=== PATIENT | female | born 1940 | race Caucasian/White ===

== ENCOUNTER 2019-09-02 09:34 | Inpatient (IN) ==
[2019-09-02 11:06] LABS: BASO# 0.03 X1000 (0.0-0.2); BASO% 0.3 % (0.0-0.8); EOS# 0.13 X1000 (0.0-0.7); EOS% 1.4 % (0.0-10.0); HEMATOCRIT 39.6 % (37.0-47.0); HEMOGLOBIN 12.1 g/dL (12.0-16.0); IMM GRAN# 0.02 X1000 (0.0-0.04); IMM GRAN% 0.2 % (0.0-0.5); LYMPH# 0.73 X1000 (1.2-3.4); LYMPH% 7.9 % (20.5-51.1); MCH 25.4 PG (27-31); MCHC 30.6 g/dL (33-37); MONO% 2.2 % (1.7-9.3); MPV 10.8 FL (7.4-10.4); NEUT# 8.16 X1000 (1.4-6.5); PLT 487 X1000 (130-400); RBC 4.77 XMIL (4.2-5.4); RDW 17.6 % (11.5-14.5); WBC 9.27 X1000 (4.8-10.8)
[2019-09-02 11:21] LABS: AGAP 13; ALB/GLOB RATIO 1.3; ALBUMIN 3.2 g/dL (3.5-5.0); ALKALINE PHOSPHATASE 133 U/L (32-104); AMYLASE 56 U/L (20-200); BUN 10 mg/dL (8-22); CALCIUM 9.1 mg/dL (8.8-10.2); CHLORIDE 102 mmol/L (98-107); CK PROFILE 23 U/L (24-173); COSMO 285; CREATININE 0.8 mg/dL (0.5-0.9); ESTIMATED GFR > 60; GLUCOSE 112 mg/dL (70-104); GOT 10 U/L (10-30); GPT 5 U/L (10-36); LIPASE 11 U/L (13-60); POTASSIUM 3.5 mmol/L (3.5-5.1); SODIUM 143 mmol/L (136-145); TCO2 28 mmol/L (25-35); TOTAL PROTEIN 5.6 g/dL (6.3-8.3)
--- NOTE | 2019-09-02 11:30 | Diag Imaging Result Doc PS360 ---
CHEST-1 VIEW - 09/02/2019 INDICATION: wheezing COMPARISON: 11/24/2017 FINDINGS: Lungs are somewhat hyperexpanded suggesting COPD. The lungs are clear. Heart size is normal. No pneumothorax or pleural effusion. IMPRESSION: Possible COPD but no acute disease. Electronically signed by Nate Pereyra 09/02/2019 11:27 AM
--- NOTE | 2019-09-02 12:35 | Diag Imaging Result Doc PS360 ---
CT HEAD/C-SPINE W/O CONTRAST - 09/02/2019 INDICATION: syncope COMPARISON: 11/24/2017 FINDINGS: Head CT: The ventricles and sulci are normal in size and contour. No intracranial mass or hemorrhage. The skull is intact. The sinuses, mastoids, and middle ears are clear. Cervical spine: There is exaggeration of the normal cervical lordosis. No fracture or subluxation. 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 There is advanced degeneration at C3-4 and C4-5. Other disc spaces are well preserved. No central canal stenosis. IMPRESSION: No acute disease. This exam was performed using automated exposure control, adjustment of mA or kV according to patient size, and/or use of iterative reconstruction technique Electronically signed by Nate Pereyra 09/02/2019 12:33 PM
[2019-09-02] MEDS ORDERED: NS 1,000 ML IV ONE (12:42)
--- NOTE | 2019-09-02 12:49 | PROVIDER DOCUMENTATION ---
This chart was entered by Steph Chowdhury Scribe, acting as scribe for Alee Falk MD. HPI-Syncope/Dizziness - General Chief Complaint: Syncope Stated Complaint: ABD PAIN Time Seen by Provider: 09/02/19 10:00 Source: patient Allergies/Adverse Reactions: Patient Allergies Allergy/AdvReac Type Severity Reaction Status Date / Time cefuroxime [From Ceftin] Allergy Unknown Verified 09/02/19 10:07 Home Medications: Home Medication List Medication Instructions Recorded Confirmed Last Taken Type Albuterol Sulfate 2.5 mg NEB PRN PRN 12/20/16 09/02/19 09/01/19 History 2.5 MG Budesonide/Formoterol Fumarate 2 puff IH BID 12/20/16 09/02/19 09/02/19 History [Symbicort 160-4.5 Mcg Inhaler] 2 PUFF Cholecalciferol (Vitamin D3) 1,000 units PO DIRECTED 12/20/16 09/02/19 09/01/19 History [D3-2000] Lisinopril 20 mg PO BID 12/20/16 09/02/19 09/02/19 History 20 MG Pravastatin Sodium [Pravachol] 80 mg PO HS 12/20/16 09/02/19 09/01/19 History 80 MG Umeclidinium [place] [Incruse 62.5 mcg IH DAILY 12/20/16 09/02/19 09/02/19 History Ellipta] 62.5 MCG Aspirin [Aspir-Low] 81 mg PO DAILY 09/02/19 09/02/19 09/01/19 History 81 MG Cyanocobalamin (Vitamin B-12) 1,000 mcg IJ Q30D 09/02/19 09/02/19 Unknown History [Cyanocobalamin Injection] Donepezil [Aricept] 10 mg PO QHS 09/02/19 09/02/19 09/01/19 History 10 MG Ferrous Sulfate 325 mg PO DAILY 09/02/19 09/02/19 09/02/19 History 325 MG Quetiapine [Seroquel] 25 mg PO HS 09/02/19 09/02/19 09/01/19 History 25 MG Roflumilast [Daliresp] 500 mcg PO DAILY 09/02/19 09/02/19 09/01/19 History 500mcg - History of Present Illness-Syncope/Dizzy Nature of Presenting Problem: 78yof presents to ED by EMS cc 2x syncopal episodes this morning, hit right side of face on an unknown object and then vomited right after coming to. Pt does reports LOC. EMS witnessed the 2nd episode. Pt has recently finished ABT for UTI. Pt has hx of HTN and COPD. Pt is A&Ox3 upon exam. Onset/Duration: reports: this morning Position/Activity at time of episode: reports: standing Symptoms prior to episode: reports: none Context: reports: lost consciousness Loss of Consciousness: unsure Current Symptoms: reports: abdominal pain (lower) Recently Seen Here or By Another Healthcare Provider: No Review of Systems - Adult - REVIEW OF SYSTEMS - ADULT Constitutional: reports: see HPI. denies: chills, fever, fatique Eyes: reports: no symptoms reported Ears, Nose, Mouth & Throat: reports: no symptoms reported Cardiovascular: reports: no symptoms reported Respiratory: reports: no symptoms reported Gastrointestinal: reports: see HPI, abdominal pain (lower). denies: constipation, diarrhea, nausea Genitourinary: reports: no symptoms reported Musculoskeletal: reports: see HPI, other (pain to right side face) Integumentary: reports: no symptoms reported Neurological: reports: see HPI, syncope Psychiatric: reports: no symptoms reported Endocrine: reports: no symptoms reported Hematologic/Lymphatic: reports: no symptoms reported Allergic/Immunologic: reports: no symptoms reported All Other Systems: Reviewed and Negative Past History - Adult - PAST MEDICAL HISTORY-ADULT Review of Records: reports: Nursing Assessment Review, Medications Reviewed, Social history reviewed & non-contributory. Major Childhood Illnesses: reports: denies history Cardiovascular: reports: HTN Respiratory: reports: COPD Gastrointestinal: reports: denies history Obstetrical/Gynecological: reports: denies history Genitourinary: reports: denies history Musculoskeletal: reports: denies history Neurological: reports: denies history Endocrine/Immune: reports: denies history Other Conditions: reports: denies history - IMMUNIZATION STATUS Childhood Immunizations: See Nurse Assessment Flu Vaccine: See Nurse Assessment - FAMILY HISTORY Family History: reviewed, not pertinent - SOCIAL HISTORY Smoking: denies Physical Exam-General - PHYSICAL EXAM-ADULT Initial Vital Signs Reviewed: Yes - CONSTITUTIONAL General Appearance: appears well, alert. negative: anxious, combative - EYES Eyes: PERRL/EOMI, pink conjunctivae. negative: photophobia - HEAD, EARS, NOSE, MOUTH & THROAT HENMT: normocephalic/atraumatic, moist mucous membranes, normal ENT inspection. negative: angioedema - RESPIRATORY Respiratory: chest non-tender, lungs clear, normal breath sounds. negative: rhonchi, stridor - CARDIOVASCULAR Cardiovascular: normal peripheral pulses, regular rate, rhythm, no edema. negative: bradycardia, tachycardia - GASTROINTESTINAL (ABDOMEN) Abdominal Exam: normal bowel sounds, soft, tenderness (lower abdomen). negative: distended, guarding - MUSCULOSKELETAL Extremity: normal inspection. negative: deformity - SKIN Integumentary: other (bruising to right parietal region). negative: abrasion(s), diaphoresis, jaundice - PSYCHIATRIC Psych/Mental Status: normal mood/affect, oriented x 3. negative: anxious, d isheveled Progress - PLAN OF CARE/RESULTS Progress/Plan/Lab Results: Vital Signs - 8 hr 09/02/19 09:48 09/02/19 09:50 09/02/19 10:02 Temperature 97.9 F Pulse Rate 78 74 67 Respiratory Rate 18 12 19 Blood Pressure 92/52 92/52 83/43 O2 Sat by Pulse Oximetry 98 100 100 09/02/19 10:33 09/02/19 11:02 09/02/19 12:40 Temperature Pulse Rate 81 78 62 Respiratory Rate 23 16 9 L Blood Pressure 94/65 97/58 100/59 O2 Sat by Pulse Oximetry 98 100 98 09/02/19 13:02 Temperature Pulse Rate 65 Respiratory Rate 12 Blood Pressure 112/51 O2 Sat by Pulse Oximetry 99 Laboratory Results - last 24 hr 09/02/19 09/02/19 09/02/19 09:58 10:40 10:40 WBC 9.27 RBC 4.77 Hgb 12.1 Hct 39.6 MCV 83.0 MCH 25.4 L MCHC 30.6 L RDW Std Deviation 17.6 H Plt Count 487 H MPV 10.8 H Immature Gran % (Auto) 0.2 Neut % (Auto) 88.0 H Lymph % (Auto) 7.9 L Rowan % (Auto) 2.2 Eos % (Auto) 1.4 Baso % (Auto) 0.3 Immature Gran # (Auto) 0.02 Neut # (Auto) 8.16 H Lymph # (Auto) 0.73 L Rowan # (Auto) 0.20 Eos # (Auto) 0.13 Baso # (Auto) 0.03 Sodium 143 Potassium 3.5 Chloride 102 Carbon Dioxide 28 Anion Gap 13 BUN 10 Creatinine 0.8 Estimated GFR/1.73 m2 > 60 BUN/Creatinine Ratio 13 Glucose 112 H POC Glucose 96 Calculated Osmolality 285 Calcium 9.1 Total Bilirubin 0.90 AST 10 ALT 5 L Alkaline Phosphatase 133 H Creatine Kinase 23 L Troponin T Total Protein 5.6 L Albumin 3.2 L Globulin 2.4 Albumin/Globulin Ratio 1.3 Amylase 56 Lipase 11 L 09/02/19 10:40 WBC RBC Hgb Hct MCV MCH MCHC RDW Std Deviation Plt Count MPV Immature Gran % (Auto) Neut % (Auto) Lymph % (Auto) Rowan % (Auto) Eos % (Auto) Baso % (Auto) Immature Gran # (Auto) Neut # (Auto) Lymph # (Auto) Rowan # (Auto) Eos # (Auto) Baso # (Auto) Sodium Potassium Chloride Carbon Dioxide Anion Gap BUN Creatinine Estimated GFR/1.73 m2 BUN/Creatinine Ratio Glucose POC Glucose Calculated Osmolality Calcium Total Bilirubin AST ALT Alkaline Phosphatase Creatine Kinase Troponin T < 0.010 Total Protein Albumin Globulin Albumin/Globulin Ratio Amylase Lipase Orders Category Date Time Status Check glucose DIRECTED Care 09/02/19 09:51 Active ED: Orthostatic Vital Signs (E DIRECTED Care 09/02/19 12:44 Active [place] [place] DIRECTED Care 09/02/19 10:40 Active Orthostatic Vital Signs Q12-HR ASSESS Care 09/02/19 20:00 Active Saline Loc DIRECTED Care 09/02/19 09:44 Active NPO Diet 09/02/19 09:[address] ABD/PELVIS W/IV CONT ONLY [CT] Stat Exams 09/02/19 09:[address] HEAD/C-SPINE W/O CONTRAST [CT] Stat Exams 09/02/19 09:48 Completed cxr [CHEST-1 VIEW] [RAD] Stat Exams 09/02/19 09:47 Completed AMYLASE [CHEM] Stat Lab 09/02/19 10:40 Completed CBC WITH ELECTRONIC DIFF [HEME] Stat Lab 09/02/19 10:40 Completed CK PROFILE [SP CHEM] Stat Lab 09/02/19 10:40 Completed COMPREHENSIVE METABOLIC PANEL [CHEM] Stat Lab 09/02/19 10:40 Completed LIPASE [CHEM] Stat Lab 09/02/19 10:40 Completed TROPONIN T Stat Lab 09/02/19 10:40 Completed URINALYSIS W/POSS RFLX CULT [URINALYSIS] Stat Lab 09/02/19 09:44 Uncollected 0.9% Sodium Chloride Inj [Ns] 1,000 ml Med 09/02/19 12:42 Active IV 999 mls/hr Levaquin 750 mg/D5w IV Now Med 09/02/19 13:18 Ordered Levofloxacin 750 mg/D5w [Levaquin 750 mg/D5w] 750 mg in 150 ml IV NOW EKG [EKG] Stat Ther 09/02/19 09:44 Ordered Result Diagrams: 09/02/19 10:40 09/02/19 10:40 - REASSESSMENT Reassessment #1 Time Reassessed: 12:44 Status: other (awake, reorts no complaint. I discussed labs with pt and family and the need to admit at for 23hrs for syncope evaluation. Hospitalist also notified) - EKG 1 Time of EKG reading by physician:: 10:00 EKG Read and Signed by:: Akbar Cabrera EKG Interpretation (*Must complete 3 of following elements*): Abnormal Rate: 82 Rhythm: NSR QRS: normal ST Wave: non-specific ST changes - XRAY 1 XRAY: Bilateral XRAY Study: Chest ( CHEST-1 VIEW - 09/02/2019 INDICATION: wheezing COMPARISON: 11/24/2017 FINDINGS: Lungs are somewhat hyperexpanded suggesting COPD. The lungs are clear. Heart size is normal. No pneumothorax or pleural effusion. IMPRESSION: Possible COPD but no acute disease. Electronically signed by Nate Pereyra 09/02/2019 11:27 AM) Impression: See EMR Report (IMPRESSION: Possible COPD but no acute disease. Electronically signed by Nate Pereyra 09/02/2019 11:27 AM) - CT/MRI 1 CT Study: Cervical Spine, Head Impression: See EMR Report (IMPRESSION: No acute disease. This exam was performed using automated exposure control, adjustment of mA or kV according to patient size, and/or use of iterative reconstruction technique Electronically signed by Nate Pereyra 09/02/2019 12:33 PM) 2 CT Study: Abdomen Impression: See EMR Report (IMPRESSION: 1. Severe COPD. Severe chronic bronchitis. Significant chronic atypical pneumonia in the lung bases consistent with aspiration or atypical mycobacteria. 2. Severe enteritis. No bowel obstruction or perforation. Trace ascites. 3. Stable benign-appearing left adrenal nodule. 4. Hiatal hernia. This exam was performed using automated exposure control, adjustment of mA or kV according to patient size, and/or use of iterative reconstruction technique Electronically signed by Nate Pereyra 09/02/2019 12:51 PM) - CONSULTS/PCP/HOSPITALIST Notification #1 *Consult/PCP/Hospitalist*: CUONG Johnston Time Discussed: 12:46 Consult Disposition: Admit (admits for hospitalist) Departure - Departure Date of Disposition Decision: 09/02/19 Time of Disposition Decision: 12:47 DIAGNOSIS: Syncope Qualifiers: Syncope type: unspecified Qualified Code(s): R55 - Syncope and collapse Hypotension Qualifiers: Hypotension type: unspecified hypotension type Qualified Code(s): I95.9 - Hypotension, unspecified Pneumonia Qualifiers: Pneumonia type: due to unspecified organism Laterality: bilateral Lung location: lower lobe of lung Qualified Code(s): J18.1 - Lobar pneumonia, unspecified organism COPD (chronic obstructive pulmonary disease) Qualifiers: COPD type: unspecified COPD Qualified Code(s): J44.9 - Chronic obstructive pulmonary disease, unspecified Disposition: ADMITTED INPATIENT 09 Certified Medical Emergency: Emergent Condition: Fair Referrals and Follow-Ups: Arin Sutherland [Primary Care Provider] - - Critical Care Note This patient required my direct & personal management of CC.: No Attestation - Physician/ CATALINA Attestation Patient care was provided by Advanced Practice Provider:: No The physician spent face to face time with patient:: Yes Advanced Practice Provider documentation review:: Supervising physician onsite and consulted in the evaluation and care of this patient. The physician did have a face to face encounter with the patient. This chart was documented by the indicated scribe, (Steph Chowdhury Scribe) and accurately reflects the services I performed and decisions made by me, Alee Falk MD, as attested by the provider's signature.
--- NOTE | 2019-09-02 12:53 | Diag Imaging Result Doc PS360 ---
CT ABD/PELVIS W/IV CONT ONLY - 09/02/2019 INDICATION: abdominal pain and syncope COMPARISON: 11/24/2017 FINDINGS: There is advanced COPD in the lung bases. There is chronic bronchitis in the lung bases. There is also significant reticulonodular infiltrates bilaterally left greater than right. 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 Stable hiatal hernia. Stable heterogeneously enhancing left adrenal nodule. Stable mild fatty change of the liver. There is some trace ascites. There is long segment inflammation of the mid and distal small bowel with wall thickening and hyperemia. The pancreas, spleen, kidneys, and gallbladder are normal. No free air. No constipation. Urinary bladder and rectum are normal. There are moderate degenerative changes of the spine. No acute or suspicious bony lesion. IMPRESSION: 1. Severe COPD. Severe chronic bronchitis. Significant chronic atypical pneumonia in the lung bases consistent with aspiration or atypical mycobacteria. 2. Severe enteritis. No bowel obstruction or perforation. Trace ascites. 3. Stable benign-appearing left adrenal nodule. 4. Hiatal hernia. This exam was performed using automated exposure control, adjustment of mA or kV according to patient size, and/or use of iterative reconstruction technique Electronically signed by Nate Pereyra 09/02/2019 12:51 PM
[2019-09-02] MEDS ORDERED: LEVAQUIN 750 MG/D5W 750 MG/150 ML IVPB IV ONE (13:18)
[2019-09-02] MEDS ORDERED: ZOFRAN IV PRN (13:50)
[2019-09-02] MEDS ORDERED: TYLENOL PO PRN ×2 (13:50)
[2019-09-02 16:06] LABS: URINE SOURCE CATH
[2019-09-02] MEDS: XOPENEX NEB INH SCH ×3 (16:06→23:42)
[2019-09-02] MEDS: ATROVENT NEB INH SCH ×3 (16:06→23:42)
[2019-09-02 16:10] LABS: BILIRUBIN URINE NEGATIVE (NEGATIVE); BLOOD URINE NEGATIVE (NEGATIVE); COLOR YELLOW; GLUCOSE URINE NEGATIVE (NEGATIVE); KETONE URINE TRACE mg/dL (NEGATIVE); LEUKOCYTES URINE NEGATIVE (NEGATIVE); NITRITE URINE NEGATIVE (NEGATIVE); PROTEIN URINE 50 mg/dL (NEGATIVE); TURBIDITY URINE CLEAR (CLEAR); UROBILINOGEN URINE NORMAL (NORMAL)
[2019-09-02 16:12] LABS: UR EPITHELIAL CELLS <10 /HPF (<10); URINE BACTERIA NEGATIVE /HPF; URINE RBC <10 /HPF (<10); URINE WBC <10 /HPF (<10)
[2019-09-02] MEDS: FLAGYL 500 MG/NS 500 MG/100 ML IVPB IV SCH ×2 (16:13→20:51)
[2019-09-02] MEDS: NS 1,000 ML IV SCH (16:14)
[2019-09-02] MEDS: PROTONIX IV SCH (16:14)
--- NOTE | 2019-09-02 16:33 | HISTORY AND PHYSICAL ---
PRIMARY CARE PROVIDER: Arin Sutherland. CHIEF COMPLAINT: Passed out. HISTORY OF PRESENT ILLNESS: Ms. Louie Dowling is a 78-year-old female with a medical history of COPD on 2 L home oxygen, dementia, iron deficiency anemia, hypertension, hyperlipidemia, sleep apnea with CPAP, and chronic diarrhea. She comes in after having 2 syncopal spells at home. The patient does not really remember much about it other than the first time she tried to get up to go to the bathroom and that is all she remembers. She did hit her head, but imaging is negative for any acute findings. On further questioning the family member at the bedside, she has been having diarrhea that is black in color. However, she is on iron supplementation. Her appetite has been poor. She has had at least a 10 pound weight loss over the last 4 to 5 months. There is denial that she has any issues with swallowing. However, an abdominal pelvic CT was obtained because she did have some vomiting up clear color earlier and it shows a pretty significant case of severe enteritis and it also shows bilateral bases pneumonia that seems to be consistent with aspiration type pneumonia. She did not have any injuries from these syncopal spells. It is also noted that she has been having a lot of diarrhea, more than her usual, and she had 2 weeks recently of antibiotics to cover for a urinary tract infection, which she did complete her antibiotics. PAST MEDICAL HISTORY: 1. Chronic obstructive pulmonary disease on home O2 2 L. 2. Obstructive sleep apnea, wears CPAP at night. 3. Dementia. 4. Iron deficiency anemia. 5. Hypertension. 6. Hyperlipidemia. 7. Diarrhea that is chronic. SURGICAL HISTORY: None. SOCIAL HISTORY: Started smoking at the age of 16, was a 1 to 2 pack per day smoker, but quit several years ago, exact time frame is unknown when she actually quit. No other alcohol or illicit drug use. She lives with her brother and [id number], who is actually the person at the bedside, is her [id number]. No devices for ambulation. FAMILY HISTORY: Mother had breast cancer. Father of myocardial infarction. ALLERGIES: Cefuroxime. HOME MEDICATIONS: 1. Aricept 10 mg p.o. nightly. 2. Albuterol nebulizers as needed. 3. Aspirin 81 mg p.o. daily. 4. Vitamin B12 injections every 30 days. 5. Vitamin D3 1000 units p.o. as directed. 6. Daliresp 500 mcg p.o. daily. 7. Ferrous sulfate 325 mg p.o. daily. 8. Incruse Ellipta 62.5 mcg inhaled daily. 9. Lisinopril 20 mg p.o. twice daily. 10. Pravachol 80 mg p.o. nightly. 11. Seroquel 25 mg p.o. nightly, may take 1 to 2 pills by mouth at bedtime for anxiety and sleep. 12. Symbicort 160/4.5 mcg 2 puffs inhaled twice daily. REVIEW OF SYSTEMS: Difficult to obtain given her dementia, but she did have some complaints of abdominal discomfort but denies everything else. PHYSICAL EXAMINATION: VITAL SIGNS: Temperature 97.9 degrees, heart rate 65, respiratory rate 12, blood pressure 112/51, O2 saturation 99% on room air. GENERAL: Ms. Louie Dowling is a 78-year-old female. She is in no acute distress. She is able answer some questions appropriately. HEENT: Atraumatic, normocephalic. Pupils equal, round, reactive to light. Extraocular movements intact. Mucous membranes are dry. She does have some bruising on her right cheek that is old in nature. NECK: Trachea midline. CARDIOVASCULAR: S1, S2. Regular rate and rhythm. No rubs, gallops, murmurs. No lower extremity edema. +2 dorsalis and radial pulses. Negative JVD or carotid bruits. PULMONARY: Mild expiratory wheezes noted with some prolonged expiration. Tolerating room air. No accessory muscle use or work of breathing noted. GI: Soft, tender in the lower abdomen. Hypoactive bowel sounds x4. EXTREMITIES: Moves all extremities with decreased range of motion. NEUROLOGIC: Oriented to name and place. Answered some questions appropriately. SKIN: Warm, dry, intact except for some bruising on her face and I believe an IV infiltrated in her left arm. LABORATORY DATA: White blood cells 9000, hemoglobin 12, hematocrit 39, platelet count 487,000. Sodium 143, potassium 3.5, BUN 10, creatinine 0.8, glucose 112, calcium 9.1, bilirubin 0.90, AST 10, ALT 5. CK 23, troponin less than 0.01. Albumin 3.2, amylase 56, lipase 11. Urinalysis pending. ASSESSMENT/PLAN: 1. Syncope, most likely orthostatic hypotension as she had blood pressures in the 90s. Family states that she does not take in a whole lot of fluids, so she is most likely hypotensive secondary to dehydration as well, so we will do orthostatics and give her some IV fluids. We will also check an echocardiogram and a carotid ultrasound. 2. Abdominal discomfort with vomiting. Abdominal CT was obtained and showed that she has severe enteritis. She will be on Levaquin and Flagyl. We will get a Clostridium difficile colitis rule out sample. 3. Hiatal hernia with gastroesophageal reflux disease. We will do some intravenous Protonix. 4. Bilateral bibasilar pneumonia, possible from aspiration or community-acquired. She is currently on Levaquin. We can change that if we need to. We will get a sputum for culture and sensitivity. Nebulizers. 5. Chronic obstructive pulmonary disease, again we will continue with her nebulizers and incentive spirometer with oxygen as needed. 6. Dementia. Continue home medications. 7. History of hypertension but we are going to hold off on her antihypertensives. 8. Iron deficiency anemia. Continue with iron supplementation. 9. Obstructive sleep apnea. Continue her CPAP. 10. Deep venous thrombosis prophylaxis with SCDs. Dictated by MONIK Myers for Carlos Durant MD cc: MONIK Myers MD
[2019-09-02] MEDS ORDERED: ATIVAN PO ONE (17:29)
--- NOTE | 2019-09-02 17:34 | HISTORY AND PHYSICAL ---
HISTORY OF PRESENT ILLNESS: I have seen and examined Ms. Dowling today. The daughter, son and [id number] were at the bedside at the time of the encounter. The son tells the story that early this morning Ms. Dowling woke up and tried to get out of the bed and apparently passed out at the bedside. He went to check on her after he heard the sound. When he arrived, Ms. Dowling was on the floor unresponsive. He used a wet towel on her face and she became slightly responsive. He started to lift her up and then she went back unresponsive again so he put her on the on the floor again and a couple seconds after she started talking back and getting clear. By the time the ambulance came to pick her, which according to them was about 10 to 15 minutes, Ms. Dowling was up, was talking, and very clear mentating. According to the [id number] this is about the 2nd time this has happened, but this has been the worst. Upon presentation, she was found to have a systolic blood pressure of 92/52. Her orthostatic vitals were slightly positive as well. On clinical exam, her mucous membrane looks dry but anicteric. There is a mild bruise over the right cheek. Otherwise, her mentation and her neurological exam for most part is unremarkable. LABORATORY DATA: There is a mild normocytic anemia. Platelet count of 487,000. Chemistry is also reviewed. Unremarkable. IMAGING STUDIES: Have all been reviewed, including a CT scan of the abdomen and pelvis which shows severe COPD with chronic bronchitis, severe enteritis, benign appearing left adrenal nodule, there is a hiatal hernia. A CT scan of the head and cervical spine shows no acute disease. HOME MEDICATIONS: Have also been reviewed. Of note, she is on lisinopril for blood pressure. ASSESSMENT: 1. Syncopal episode at home, most likely due to orthostatic hypotension. 2. Clinical volume depletion. 3. History of hypertension. Patient is on lisinopril. Of note, on presentation, she was borderline hypotensive, so this will be withheld for now. 4. Borderline normocytic anemia. We will check her iron studies. 5. History of severe chronic obstructive pulmonary disease. We will continue with her home medications. The patient has been started on antibiotics for possible aspiration pneumonitis versus atypical pneumonia on the lung bases. 6. Severe enteritis. Ms. Dowling refers to be having a little bit of bowel movement and we will sample this for culture, Clostridium difficile, and stool WBC and treat it accordingly, if there is any infectious pathogen. Please refer to the details of the history and physical which has been dictated by the [employer] in the chart. cc: Carlos Durant MD
--- NOTE | 2019-09-02 17:38 | EKG Report ---
Test Performed on : 09/02/2019 09:58:35 AM Test Reason : syncope Blood Pressure : / mmHG Vent. Rate : 082 BPM Atrial Rate : 082 BPM P-R Int : 146 ms QRS Dur : 078 ms QT Int : 396 ms P-R-T Axes : 081 058 039 degrees QTc Int : 462 ms Normal sinus rhythm. Nonspecific ST and T wave abnormality Abnormal ECG No previous ECGs available Unconfirmed Result
[2019-09-02] MEDS: PULMICORT INH SCH (19:33)
[2019-09-02] MEDS: PRAVACHOL PO SCH (20:51)
[2019-09-02] MEDS: ARICEPT PO SCH (20:51)
[2019-09-02] MEDS: SEROQUEL PO SCH (20:51)
[2019-09-03] MEDS: NS 1,000 ML IV SCH ×2 (03:12→18:42)
[2019-09-03] MEDS: XOPENEX NEB INH SCH ×6 (03:32→22:44)
[2019-09-03] MEDS: ATROVENT NEB INH SCH ×6 (03:32→22:44)
[2019-09-03] MEDS: PROTONIX IV SCH ×2 (03:35→13:30)
[2019-09-03 06:35] LABS: BASO# 0.02 X1000 (0.0-0.2); BASO% 0.3 % (0.0-0.8); EOS# 0.05 X1000 (0.0-0.7); EOS% 0.8 % (0.0-10.0); HEMATOCRIT 34.1 % (37.0-47.0); HEMOGLOBIN 10.2 g/dL (12.0-16.0); LYMPH# 0.87 X1000 (1.2-3.4); LYMPH% 13.4 % (20.5-51.1); MCH 25.1 PG (27-31); MCHC 29.9 g/dL (33-37); MCV 83.8 FL (81-99); MONO# 0.35 X1000 (0.11-0.59); MONO% 5.4 % (1.7-9.3); MPV 11.1 FL (7.4-10.4); NEUT% 80.1 % (42.2-75.2); PLT 371 X1000 (130-400); RBC 4.07 XMIL (4.2-5.4); RDW 17.5 % (11.5-14.5); WBC 6.49 X1000 (4.8-10.8)
[2019-09-03] MEDS: FLAGYL 500 MG/NS 500 MG/100 ML IVPB IV SCH ×3 (06:49→21:19)
[2019-09-03 06:57] LABS: FERRITIN 135 ng/mL (13-150)
[2019-09-03 06:59] LABS: AGAP 10; ALB/GLOB RATIO 1.1; ALBUMIN 2.7 g/dL (3.5-5.0); ALKALINE PHOSPHATASE 111 U/L (32-104); BUN 9 mg/dL (8-22); CALCIUM 8.4 mg/dL (8.8-10.2); CHLORIDE 105 mmol/L (98-107); COSMO 280; CREATININE 0.6 mg/dL (0.5-0.9); ESTIMATED GFR > 60; GLUCOSE 94 mg/dL (70-104); GOT 9 U/L (10-30); GPT < 5 U/L (10-36); IRON SATURATION 20 %; MAGNESIUM 1.7 mg/dL (1.5-2.7); POTASSIUM 2.7 mmol/L (3.5-5.1); SODIUM 141 mmol/L (136-145); TCO2 26 mmol/L (25-35); TIBC 167 ug/dL; TOTAL BILIRUBIN 0.68 mg/dL (0.20-1.00); TOTAL IRON 33 ug/dL (49-151); TOTAL PROTEIN 5.2 g/dL (6.3-8.3); UNBOUND IRON 134 ug/dL (112-346)
[2019-09-03 07:42] LABS: SED RATE 18 mm/hr (0-20)
[2019-09-03] MEDS: PULMICORT INH SCH ×2 (07:43→19:08)
--- NOTE | 2019-09-03 09:11 | Diag Imaging Result Doc PS360 ---
CHEST-2 VIEWS - 09/03/2019 INDICATION: pna COMPARISON: 09/02/2019 FINDINGS: Lung volumes are lower. There is slight worsening in the mild infiltrate or atelectasis in the lateral left lung base. Heart size remains normal. No large pleural effusion. IMPRESSION: Nonspecific findings. Electronically signed by Nate Pereyra 09/03/2019 9:09 AM
[2019-09-03] MEDS ORDERED: VENOFER 200 MG in NS 100 ML IV ONE (09:18)
[2019-09-03] MEDS: ASPIRIN EC PO SCH (09:24)
[2019-09-03] MEDS: FERROUS SULFATE PO SCH (09:24)
[2019-09-03 09:36] LABS: INR 1.16
[2019-09-03 09:37] LABS: PTT 30.3 Seconds (22.3-41.8)
[2019-09-03] MEDS: FOLIC ACID PO SCH (09:50)
[2019-09-03] MEDS: LEVAQUIN 500 MG/D5W 500 MG/100 ML IVPB IV SCH (12:00)
[2019-09-03] MEDS: SODIUM CHLORIDE 0.9% INJ SCH (13:30)
--- NOTE | 2019-09-03 13:32 | ECHO REPORT ---
ORDER DATE: 09/02/2019 ECHOCARDIOGRAPHIC MEASUREMENTS: 1. Septal thickness 1.2. 2. Left ventricular internal diameter in diastole 4.3. 3. Posterior wall thickness 0.8. 4. Left ventricular internal diameter in systole 3.1. 5. Aortic root 3.3. 6. Left atrium 3.5. SUMMARY: 1. Fair quality study. 2. Aortic valve is trileaflet and opens normally on 2-dimensional images. The peak gradient across the aortic valve is less than 10 mmHg. There is mild aortic regurgitation. Mitral, tricuspid, and pulmonic valves are without evidence of structural abnormality with very mild mitral regurgitation and trace tricuspid regurgitation. Aortic root is normal in size. 3. Normal left ventricular dimensions demonstrated. The estimated left ventricular ejection fraction appears to be at least 60%. No regional wall motion abnormalities evident. Doppler suggests grade 1 left ventricular diastolic dysfunction. The left atrium, right atrium, right ventricle are grossly normal in size with grossly preserved right ventricular systolic function. 4. No pericardial effusion. 5. Appearance of inferior vena cava suggests normal central venous pressure. cc: MD Vickie Cardona CRNP
[2019-09-03] MEDS ORDERED: PREDNISONE PO ONE (15:16)
--- NOTE | 2019-09-03 15:46 | PROGRESS NOTE ---
DATE: 09/03/2019 SUBJECTIVE: This morning Miss Dowling refers to be doing a lot better. All the family members were at the bedside. There were I think about 6 of them. OBJECTIVE: Vital signs: Blood pressure is 115/40, pulse of 71, respiration is 19, temperature 97.6 degrees. The patient's orthostatic vitals were still abnormal. general: Miss Dowling is a 78-year-old female. She is in bed in no distress. heent: Mucosa is pink, slightly dry. Anicteric. Acyanotic. Neck: Supple. Chest: Good air entry bilateral. A few distant crackles in the posterior lung field with some wheezing. Cardiovascular: Regular rate and rhythm. Abdomen: Soft, nontender. Bowel sounds present. Extremities: No pedal edema. CENTRAL NERVOUS SYSTEM: The patient is awake, alert, oriented, and has no focal deficit. LABORATORY DATA: WBC is 6.49, hemoglobin is 10.2, platelet count of 371,000. Chemistry is also reviewed. For most part unremarkable except for potassium was 2.7. C-reactive protein is minimally elevated. Folate is remarkably low. The patient's iron studies are consistent with underlying iron deficiency. ASSESSMENT: 1. Syncope at home secondary to orthostatic hypotension. Orthostatic vitals continues to be abnormal. We are going to continue with the IV fluids. The patient's home lisinopril has been withheld. 2. Clinical volume depletion, improving. 3. History of hypertension. The patient used to be on lisinopril. This is on hold for now. 4. Normocytic anemia with underlying iron deficiency and folate deficiency. We will continue to replace this. 5. Severe chronic obstructive pulmonary disease with mild exacerbation on admission. The patient is on antimicrobial therapy. We will add low-dose oral prednisone as well. 6. Severe enteritis. So far Clostridium difficile studies have been unremarkable. We are waiting for the stool cultures. Of note, Miss Dowling was on lisinopril for some time and lisinopril-induced enteritis could be a possibility. Obviously, other vascular and inflammatory disease will also need to be ruled out. Miss Dowling is currently on antimicrobial therapy. We have advised that she follows up with GI for outpatient workup. 7. Iron and folate deficiency. We will continue to replace. 8. Hypopotassemia. We will replace. 9. Protein calorie malnutrition. We will get dietitian to evaluate her. PLAN: So, for today we are going to discontinue the [place] catheter. Start Miss Dowling on diet supplements. Lisinopril has been withheld. We will continue with the IV fluids. She still remains abnormal on her orthostatic vitals. We will recheck this in the morning and then go from there. We will also send her labs to rule out any inflammatory pattern as well as celiac disease. Miss Dowling and her entire family have also been advised that she will need to follow up with a legal examiner. cc: Carlos Durant MD
[2019-09-03] MEDS: ARICEPT PO SCH (21:19)
[2019-09-03] MEDS: SEROQUEL PO SCH (21:19)
[2019-09-03] MEDS: PRAVACHOL PO SCH (21:19)
[2019-09-04] MEDS: PROTONIX IV SCH ×2 (03:04→17:35)
[2019-09-04] MEDS: XOPENEX NEB INH SCH ×5 (03:23→19:08)
[2019-09-04] MEDS: ATROVENT NEB INH SCH ×5 (03:23→19:08)
[2019-09-04 05:32] LABS: HEMOGLOBIN 9.4 g/dL (12.0-16.0); LYMPH% 8.6 % (20.5-51.1); MCH 25.2 PG (27-31); MCHC 30.3 g/dL (33-37); MCV 83.1 FL (81-99); MONO# 0.01 X1000 (0.11-0.59); MONO% 0.3 % (1.7-9.3); MPV 10.7 FL (7.4-10.4); NEUT# 3.18 X1000 (1.4-6.5); NEUT% 91.1 % (42.2-75.2); PLT 321 X1000 (130-400); RBC 3.73 XMIL (4.2-5.4); RDW 17.4 % (11.5-14.5); WBC 3.49 X1000 (4.8-10.8)
[2019-09-04 05:41] LABS: AGAP 11; ALB/GLOB RATIO 1.1; ALBUMIN 2.6 g/dL (3.5-5.0); ALKALINE PHOSPHATASE 98 U/L (32-104); BUN 6 mg/dL (8-22); CALCIUM 8.5 mg/dL (8.8-10.2); CHLORIDE 108 mmol/L (98-107); COSMO 286; CREATININE 0.7 mg/dL (0.5-0.9); ESTIMATED GFR > 60; GLUCOSE 132 mg/dL (70-104); GOT 8 U/L (10-30); GPT < 5 U/L (10-36); MAGNESIUM 1.7 mg/dL (1.5-2.7); POTASSIUM 2.9 mmol/L (3.5-5.1); SODIUM 144 mmol/L (136-145); TCO2 25 mmol/L (25-35); TOTAL BILIRUBIN 0.49 mg/dL (0.20-1.00); TOTAL PROTEIN 4.9 g/dL (6.3-8.3)
[2019-09-04] MEDS: FLAGYL 500 MG/NS 500 MG/100 ML IVPB IV SCH ×2 (05:43→19:56)
[2019-09-04] MEDS: NS 1,000 ML IV SCH (05:44)
[2019-09-04 05:59] LABS: LYMPHS 9 % (21-51); OVALOCYTES OCCASIONAL; SEGS 91 % (42-75)
[2019-09-04] MEDS: PULMICORT INH SCH ×2 (07:36→19:11)
[2019-09-04] MEDS ORDERED: CORTROSYN IV ONE (08:00)
[2019-09-04] MEDS ORDERED: MAGNESIUM SULFATE 2 GM/S.W.I. 2 GM/50 ML IVPB IV ONE (08:59)
[2019-09-04] MEDS ORDERED: KLOR-CON PO ONE (08:59)
[2019-09-04] MEDS ORDERED: PREDNISONE PO SCH (09:00)
[2019-09-04] MEDS: FOLIC ACID PO SCH (14:11)
[2019-09-04] MEDS: ASPIRIN EC PO SCH (14:11)
[2019-09-04] MEDS: FERROUS SULFATE PO SCH (14:11)
[2019-09-04] MEDS: POTASSIUM CHLORIDE 20 MEQ/SWI 20 MEQ/100 ML IVPB IV SCH ×2 (15:18→17:27)
[2019-09-04] MEDS: SODIUM CHLORIDE 0.9% INJ SCH (17:34)
[2019-09-04 18:46] VITALS: BP 119/43
[2019-09-04] MEDS: LEVAQUIN 500 MG/D5W 500 MG/100 ML IVPB IV SCH (19:53)
[2019-09-04] MEDS: SEROQUEL PO SCH (19:59)
[2019-09-04] MEDS: ARICEPT PO SCH (19:59)
[2019-09-04] MEDS: PRAVACHOL PO SCH (19:59)
--- NOTE | 2019-09-04 22:00 | DISCHARGE SUMMARY ---
ADMISSION DATE: 09/02/2019 DISCHARGE DATE: 09/04/2019 DISPOSITION: Home. FOLLOW-UP: 1. Dr. Arin Sutherland. 2. Dr. Schulte. 3. Dr. Poole. 4. Dr. Juan Brenner. CONSULTATION DURING THIS ADMISSION: None. IMAGING STUDIES OF SIGNIFICANCE: 1. A CT scan of the abdomen and pelvis did show severe COPD with severe chronic bronchitis, chronic atypical pneumonia. There was also severe enteritis and stable benign left adrenal nodule. There was a hiatal hernia. 2. Chest x-ray shows possible COPD. 3. Head CT scan showed no acute pathology. 4. An echocardiogram showed ejection fraction of 60%. No wall motion abnormality. 5. A repeat chest x-ray showed nonspecific findings. ADMISSION DIAGNOSES: 1. Syncope. 2. Abdominal discomfort. 3. Hiatal hernia. 4. Bibasilar pneumonia. 5. Dementia. DIAGNOSES AT THE TIME OF DISCHARGE: 1. Syncope at home secondary to orthostatic hypotension. 2. Clinical volume depletion, improved. 3. Hypertension. Patient was on lisinopril. This was withheld. 4. Normocytic anemia with underlying iron and folate deficiency. 5. Severe COPD with mild exacerbation on admission. 6. Severe enteritis of unclear etiology. Patient will follow up with GI, so far stool cultures have been negative for any infectious pathology. 7. Iron and folate deficiency. 8. Hypopotassemia. 9. Protein calorie malnutrition. 10. Left benign appearing adrenal nodule noted on CT scan. Patient has been advised to continue follow-up. 11. Hiatal hernia. DISCHARGE MEDICATIONS: 1. Albuterol nebulizer. 2. Pravastatin 80 mg p.o. at bedtime. 3. Ellipta inhaler. 4. Symbicort. 5. Cholecalciferol. 6. Iron sulfate. 7. Quetiapine 25 mg p.o. at bedtime. 8. Donepezil 10 mg p.o. at bedtime. 9. Aspirin 81 mg p.o. daily. 10. Daliresp 500 mcg p.o. daily. 11. Metronidazole 250 p.o. 3 times per day. 12. Prednisone 20 mg p.o. daily. 13. Folic acid 1 mg p.o. daily. 14. Levofloxacin 500 mg p.o. daily. 15. Pantoprazole 40 mg p.o. daily. PRESENTING COMPLAINT: Was passing out. HISTORY OF PRESENTING COMPLAINT: Ms. Dowling is a 78-year-old female with a history of severe COPD, on home oxygen, presented to the emergency department because she passed out at home. Upon presenting, she was evaluated. She was found to be remarkably dry. An initial blood pressure revealed was 92/52, orthostatic vitals was remarkably positive. She was admitted to the medical floor for evaluation. HOSPITAL COURSE: Ms. Dowling was admitted to the medical floor. She was cultured just to rule out any possible infectious etiology. Blood cultures came back negative. She was found to be volume depleted, so she was started on fluid resuscitation, which she progressively got better. Orthostatic vitals were checked multiple occasions during the hospital course until today that it was normal and she was no more symptomatic. 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 Cortisol level was done. It was initially low, but the stimulation test was normal, so she did not need any supplement. Other hormone determinations were ordered to rule out pheochromocytoma and also aldosterone producing disease tumor. All these levels are still pending. The patient will review that with her oncologist, Dr. Poole. Ms. Dowling was found to have enteritis on her CT scan. She did complain of mild abdominal discomfort as well. Her C-reactive protein was elevated. However, her sedimentation rate was normal. The stool C. Difficile both antigen and toxin were negative. Other serologies to rule out any inflammatory GI disease have all been ordered and the patient has been advised to follow up with Dr. Schulte in his office to review the results of these serologies and also determine the need for further GI workup. Ms. Dowling will be on antibiotics for a total of 10 days for suspicious infectious enteritis. On the day of the discharge Ms. Wallace referred to be feeling a whole lot better. All the family members were at the bedside and they also agreed that she is looking much better. CURRENT VITALS: Blood pressure is 119/43, her pulse is 64, respirations 17, temperature 98.0 degrees. We think she is fairly stable to be discharged. She is going to be on multiple vitamin and mineral supplementations for her deficiencies and she will follow up with all the other subspecialties. All the discharge instructions have been discussed with her and all the family members. There were about 4 at the bedside and they all voiced understanding. I understand Ms. Dowling was evaluated today as well by Physical Therapy. She has been able to walk 225 with minimum assist. There was no device used. She has been advised to use occasionally cane. TIME SPENT FOR DISCHARGE: 38 minutes. cc: MD Arin Jean MD Amit Arora, MD Naveen T. Lobo, MD Peter Johnson, MD
[2019-09-05] MEDS: XOPENEX NEB INH SCH (00:45)
[2019-09-05] MEDS: ATROVENT NEB INH SCH (00:45)
[2019-09-05 20:47] LABS: TISSUE TRANSGLUTAMINASE IGA SEE COMMENTS
--- NOTE | 2019-09-06 12:44 | Carotid Study ---
DATE: 09/02/2019 REFERRING PHYSICIAN: Bronson. INTERPRETING PHYSICIAN: Dr. Rock. METALLURGICAL TECHNICIAN: Kain. Patient has syncope. Velocities are noted. The right internal common carotid artery shows 0.87, left is 0.81. There is antegrade vertebral flow bilaterally. INTERPRETATION: No significant plaque disease identified. There is antegrade vertebral flow bilaterally. cc: MD Vickie Malin CRNP
== END 2019-09-04 22:00 | disposition home health service (06) | DRG 640 ==
LOC: SUPCPDRO → ED 09:34 → 1N 14:12 → SUATTDRO 14:12
PROVIDERS: ATTEND Internal Medicine

== ENCOUNTER 2019-09-27 18:59 | Inpatient (IN) ==
--- NOTE | 2019-09-27 19:37 | PROVIDER DOCUMENTATION ---
HPI-General Adult - General Chief Complaint: Rib Pain Stated Complaint: RETURN/RECHECK Time Seen by Provider: 09/27/19 19:12 Source: patient, family Allergies/Adverse Reactions: Patient Allergies Allergy/AdvReac Type Severity Reaction Status Date / Time cefuroxime [From Ceftin] Allergy Unknown Verified 09/28/19 01:17 Home Medications: Home Medication List Medication Instructions Recorded Confirmed Last Taken Type Albuterol Sulfate 2 puff INH BID 12/20/16 09/28/19 09/27/19 09:00 History Cholecalciferol (Vitamin D3) 1,000 units PO DIRECTED 12/20/16 09/28/19 09/27/19 09:00 History [D3-2000] Pravastatin Sodium [Pravachol] 80 mg PO HS 12/20/16 09/28/19 09/27/19 09:00 History Aspirin [Aspir-Low] 81 mg PO DAILY 09/02/19 09/28/19 09/27/19 09:00 History Cyanocobalamin (Vitamin B-12) 1,000 mcg IJ Q30D 09/02/19 09/28/19 08/23/19 09:00 History [Cyanocobalamin Injection] Donepezil [Aricept] 10 mg PO QHS 09/02/19 09/28/19 09/27/19 09:00 History Quetiapine [Seroquel] 25 mg PO HS 09/02/19 09/28/19 09/27/19 09:00 History Folic Acid 1 mg PO DAILY #120 tab 09/04/19 09/28/19 09/22/19 Rx Budesonide/Formoterol Fumarate 10.2 gm INH BID 09/22/19 09/28/19 09/27/19 09:00 History [Symbicort 160-4.5 Mcg Inhaler] Dextromethorphan HBr/Quinidine 1 cap PO Q12HR 09/22/19 09/28/19 09/27/19 09:00 History [Nuedexta 20-10 mg Capsule] Nitrofurantoin [place]/Macrocryst 100 mg PO BID #10 cap 09/22/19 09/28/19 09/27/19 09:00 Rx [Macrobid] Roflumilast [Daliresp] 500 mcg PO DAILY 09/22/19 09/28/19 09/22/19 History Umeclidinium [place] [Incruse 1 puff INH DAILY 09/22/19 09/28/19 09/22/19 History Ellipta] Vit D3-Vit K/[place]/Hops 1.25 mg PO DIRECTED 09/22/19 09/28/19 09/22/19 History [Ostera Tablet] - History of Present Illness -Gen Adult Nature of Presenting Problems: 78yo female presents with CC of left rib pain and cough. The patient was seen sunday and discharge with treatment for UTI, and family was called back today that there was a PNA noted on the cxr when the radiologist read it. The family returns to follow up in that xray. The patient has been having a cough and some increased forgetfullness. The patient has not had a fever or increased shortness of breath. The patient has been having diarrhea for the past week and has follow up with GI on tu of next week. The patient is alert and oriented x3 and in no distress. Location of Pain/Injury: reports: upper body (left rib), other Pain Radiation: reports: other (abdomen) Severity: reports: mild Onset/Duration: reports: 1 week ago Timing: reports: still present, intermittent Associated Symptoms: reports: cough. denies: fever/chills, shortness of breath Review of Systems - Adult - REVIEW OF SYSTEMS - ADULT Constitutional: reports: no symptoms reported. denies: fever Eyes: reports: no symptoms reported. denies: eye pain Ears, Nose, Mouth & Throat: reports: no symptoms reported. denies: throat pain Cardiovascular: reports: no symptoms reported. denies: chest pain Respiratory: reports: cough, dyspnea on exertion, shortness of breath Gastrointestinal: reports: abdominal pain, diarrhea. denies: hematemesis, vomiting Genitourinary: reports: no symptoms reported Musculoskeletal: reports: joint pain (left rib) Integumentary: reports: no symptoms reported Neurological: reports: other (increased forgetfulness) Psychiatric: reports: no symptoms reported Endocrine: reports: no symptoms reported Hematologic/Lymphatic: reports: no symptoms reported Allergic/Immunologic: reports: no symptoms reported Past History - Adult - PAST MEDICAL HISTORY-ADULT Review of Records: reports: Old Records Reviewed, Nursing Assessment Review, Med ications Reviewed Cardiovascular: reports: HTN Respiratory: reports: COPD Neurological: reports: dementia - PRIOR SURGERIES/PROCEDURES Surgical/Procedure History: denies: recent surgery - IMMUNIZATION STATUS Childhood Immunizations: See Nurse Assessment Flu Vaccine: See Nurse Assessment - FAMILY HISTORY Family History: cancer - SOCIAL HISTORY Smoking: quit greater than 1 year Substance Use: none/never Alcohol Use Frequency: never Physical Exam-General - CONSTITUTIONAL General Appearance: appears well, alert, no apparent distress - EYES Eyes: negative: conjuctival exudate, photophobia, sclera injected, subconjunctival hemorrhage - HEAD, EARS, NOSE, MOUTH & THROAT HENMT: normocephalic/atraumatic, pharynx normal. negative: moist mucous membranes, hearing deficit, pharyngeal erythema - NECK Neck: non-tender, supple - RESPIRATORY Respiratory: crackles (RLL and LLL mild). negative: wheezing - CARDIOVASCULAR Cardiovascular: regular rate, rhythm, no edema - GASTROINTESTINAL (ABDOMEN) Abdominal Exam: non tender, soft. negative: guarding, rigid, tenderness - MUSCULOSKELETAL Extremity: non-tender. negative: deformity, swelling - SKIN Integumentary: normal color, warm/dry - NEUROLOGIC Neurologic: grossly normal - PSYCHIATRIC Psych/Mental Status: normal mood/affect, normal thought content, normal thought process, oriented x 3 Progress - PLAN OF CARE/RESULTS Progress/Plan/Lab Results: Vital Signs - 8 hr 09/27/19 19:02 Temperature 97.7 F Pulse Rate 75 Respiratory Rate 18 Blood Pressure 133/62 O2 Sat by Pulse Oximetry 91 L Orders Category Date Time Status cxr [CHEST-2 VIEWS] [RAD] Stat Exams 09/27/19 19:31 Ordered CBC WITH ELECTRONIC DIFF [HEME] Stat Lab 09/27/19 19:31 Uncollected COMPREHENSIVE METABOLIC PANEL [CHEM] Stat Lab 09/27/19 19:31 Uncollected LACTATE, PLASMA [CHEM] Stat Lab 09/27/19 19:31 Uncollected Result Diagrams: 09/27/19 19:40 09/27/19 19:40 - REASSESSMENT Reassessment #1 Status: other (Patient CXR showing pneumonia. Given patient age and reported worsening mental state and home and noted pulse ox on arrival, will plan for admission with observation. Options of discharge home vs admission for o bservation were discussed with the family, and they prefered observations. Discussed case will hospitalit team who has accepted the patient.) Departure - Departure Date of Disposition Decision: 09/28/19 ( ) Time of Disposition Decision: 01:46 DIAGNOSIS: Mental status, decreased Pneumonia Qualifiers: Pneumonia type: due to unspecified organism Laterality: left Lung location: lower lobe of lung Qualified Code(s): J18.1 - Lobar pneumonia, unspecified organism Disposition: ADMITTED INPATIENT 09 Certified Medical Emergency: Emergent Condition: Fair - Critical Care Note This patient required my direct & personal management of CC.: No Attestation - Physician/ [place] Attestation Patient care was provided by Advanced Practice Provider:: No The physician spent face to face time with patient:: Yes Advanced Practice Provider documentation review:: Supervising physician onsite and consulted in the evaluation and care of this patient. The physician did have a face to face encounter with the patient.
--- NOTE | 2019-09-27 19:54 | Diag Imaging Result Doc PS360 ---
EXAM: CHEST-2 VIEWS 09/27/2019 HISTORY: Cough and Shortness of breath TECHNIQUE: PA and lateral chest COMMENT: There is COPD. There is ill-defined opacity in the left lower lobe. This has improved slightly since previous study of 09/22/2019. IMPRESSION: Improved left lower lobe pneumonia. Electronically signed by Lev Schafer 09/27/2019 7:51 PM
[2019-09-27 20:35] LABS: BASO# 0.02 X1000 (0.0-0.2); BASO% 0.4 % (0.0-0.8); EOS# 0.14 X1000 (0.0-0.7); EOS% 2.6 % (0.0-10.0); HEMATOCRIT 38.6 % (37.0-47.0); LYMPH# 0.49 X1000 (1.2-3.4); LYMPH% 9.2 % (20.5-51.1); MCH 26.6 PG (27-31); MCHC 31.1 g/dL (33-37); MCV 85.6 FL (81-99); MONO# 0.31 X1000 (0.11-0.59); MONO% 5.8 % (1.7-9.3); NEUT# 4.39 X1000 (1.4-6.5); PLT 347 X1000 (130-400); RBC 4.51 XMIL (4.2-5.4); RDW 18.3 % (11.5-14.5); WBC 5.35 X1000 (4.8-10.8)
[2019-09-27 20:47] LABS: AGAP 14; ALB/GLOB RATIO 1.4; ALBUMIN 3.2 g/dL (3.5-5.0); ALKALINE PHOSPHATASE 114 U/L (32-104); BUN 6 mg/dL (8-22); CALCIUM 9.2 mg/dL (8.8-10.2); CHLORIDE 98 mmol/L (98-107); COSMO 283; CREATININE 0.6 mg/dL (0.5-0.9); ESTIMATED GFR > 60; GLUCOSE 164 mg/dL (70-104); GOT 11 U/L (10-30); GPT 5 U/L (10-36); POTASSIUM 3.4 mmol/L (3.5-5.1); SODIUM 141 mmol/L (136-145); TCO2 29 mmol/L (25-35); TOTAL BILIRUBIN 0.76 mg/dL (0.20-1.00); TOTAL PROTEIN 5.5 g/dL (6.3-8.3)
[2019-09-27] MEDS ORDERED: NS 1,000 ML IV ONE (20:51)
[2019-09-27] MEDS ORDERED: LEVAQUIN 750 MG/D5W 750 MG/150 ML IVPB IV ONE (21:38)
[2019-09-28] MEDS ORDERED: SEROQUEL PO ONE (00:14)
[2019-09-28] MEDS ORDERED: ARICEPT PO ONE (00:14)
--- NOTE | 2019-09-28 01:42 | HISTORY AND PHYSICAL ---
PRIMARY CARE PROVIDER: Dr. Arin Sutherland. CHIEF COMPLAINT: The patient was called in by the ED. HISTORY OF PRESENT ILLNESS: Ms Dowling is a 78-year-old female who carries a past medical history of severe COPD who is on home oxygen 24/7, dementia, over the last several months issues with chronic diarrhea, hiatal hernia, hypertension, normocytic anemia. Per family at bedside, on 09/22/2019 the patient was brought to the ED to be ruled out for C difficile, which was negative. She was found to have a UTI. She was placed on Macrobid. She got a call back today stating that her chest x-ray showed pneumonia and wanted her to come back in for re- evaluation. Her follow-up chest x-ray today shows improvement in her left lower lobe pneumonia. The patient and family reported that she has had episodes of chronic diarrhea that have been ongoing for several months now. They have a follow-up appointment with Dr. Schulte next Sunday. She was told by the ED staff she needed to come in and get IV fluids. She has not been febrile. She does not have a white count. She is not tachycardic. She is not hypotensive. She does not rule in for sepsis protocol. However, she will be admitted in observation status. We will start her on IV Levaquin and probably discharge her in the a.m. given her severe dementia. PAST MEDICAL HISTORY: 1. Dementia. 2. Hypertension. 3. Chronic diarrhea. 4. Normocytic anemia. 5. Hard of hearing. 6. Hiatal hernia. 7. COPD on home oxygen 24/7. PAST SURGICAL HISTORY: None. SOCIAL HISTORY: She started smoking at the age of 16 with a 1 to 2 pack per day smoker, quit several years ago. No alcohol or illicit drug use. She lives with family members as well as has a lot of supportive family members who help and aid in her care. She has never been . No children. FAMILY HISTORY: Mother with breast cancer. Father of [place]. ALLERGIES: Cefuroxime. MEDICATIONS: Home medications are currently being compiled. PHYSICAL EXAMINATION: VITAL SIGNS: Temperature is 97.7 degrees, heart rate 75, respirations 18, blood pressure 133/60, O2 is 91% on 2 L nasal cannula. GENERAL: Ms. Dowling is a pleasantly demented, hard of hearing 78-year-old female who is lying in the bed in no acute distress. She is somewhat agitated, picking at blanket, picking at IV sites, picking at old tape. HEENT: Atraumatic, normocephalic. PERRL. NECK: Supple. Trachea midline. CARDIOVASCULAR: S1, S2 appreciated. No murmurs, gallops, rubs noted. RESPIRATORY: Lung sounds shallow. She did not really understand or hear me ask her to take in deep breaths, but no rales, rhonchi or wheezes. GASTROINTESTINAL: Soft, nontender, nondistended. Positive bowel sounds 4 quadrants. EXTREMITIES: Lower extremities, did not really appreciate any edema. She still had her tennis shoes on. The patient was moving all extremities well in bed. NEUROLOGIC: She is very hard of hearing. When anybody talks to her she just says yeah a lot. The family reports she is at her baseline but getting a little bit agitated being away from her home and in the ED. LABORATORY DATA: Repeat chest x-ray shows improving left lower lobe pneumonia. CBC, white count of 5, hemoglobin and hematocrit of 12 and 38, platelet count of 347,000. Sodium 141, potassium 3.4, BUN 6, creatinine 0.6, blood glucose is 164. Troponin is 7. Initial plasma lactate was 3.1, now 1.2. ASSESSMENT AND PLAN: 1. Left lower lobe pneumonia that has improved per imaging. Family reports no fever, no chills. They did report that she was having some rib pain as well as a cough that is about her norm. However, they also said that she could not really tell you if she was in pain so we will continue with IV hydration overnight. IV antibiotics with Levaquin. 2. Recent treatment for urinary tract infection. She had 1 more day of Macrobid left for 2 doses. We will continue with IV Levaquin. Her urine culture back on the showed no growth. 3. Chronic diarrhea. She has had several tests done for C difficile here and at [facility] as well as her Home Health. They have all been negative. We will rule out any infectious with WBCs, ova and parasites, stool studies. She does have an appointment with Dr. Schulte next Sunday. 4. Chronic obstructive pulmonary disease, on home oxygen. We will continue her medications when reconciled. Continue her on home O2, and bronchodilators and aggressive pulmonary toilet. 5. Dementia. We will continue home medications when reconciled. 6. Hard of hearing. 7. Hypertension. Per family report, she was taken off of all her blood pressure medications on her last visit. 8. Code status. Family at bedside wishes her to remain a full code. 9. Further recommendation to follow physician evaluation, laboratory and diagnostic data. Dictated by MONIK Villasenor for Mario Mcelroy MD cc: MD Arin Duncan MD MTDD
[2019-09-28] MEDS ORDERED: DUONEB (A & A) INH PRN (01:46)
[2019-09-28] MEDS ORDERED: TYLENOL PO PRN (01:46)
[2019-09-28] MEDS: DUONEB (A & A) INH SCH ×7 (01:55→22:52)
--- NOTE | 2019-09-28 02:29 | EKG Report ---
Test Performed on : 09/28/2019 01:47:57 AM Test Reason : Rib pain Blood Pressure : / mmHG Vent. Rate : 079 BPM Atrial Rate : 079 BPM P-R Int : 158 ms QRS Dur : 084 ms QT Int : 450 ms P-R-T Axes : 072 038 -27 degrees QTc Int : 516 ms Normal sinus rhythm. Cannot rule out Anterior infarct , age undetermined Prolonged QT Abnormal ECG When compared with ECG of 02-SEP-2019 09:58, (Unconfirmed) Nonspecific T wave abnormality no longer evident in Lateral leads Confirmed by Rush SIMS, Ramone Duenas ([id number]) on 09/28/2019 10:26:31 PM
[2019-09-28] MEDS: NS 1,000 ML IV SCH ×2 (03:27→16:36)
[2019-09-28 08:35] LABS: BASO# 0.03 X1000 (0.0-0.2); BASO% 0.8 % (0.0-0.8); EOS# 0.25 X1000 (0.0-0.7); EOS% 6.3 % (0.0-10.0); HEMATOCRIT 34.9 % (37.0-47.0); HEMOGLOBIN 10.5 g/dL (12.0-16.0); LYMPH# 0.57 X1000 (1.2-3.4); LYMPH% 14.3 % (20.5-51.1); MCHC 30.1 g/dL (33-37); MCV 86.4 FL (81-99); MONO# 0.29 X1000 (0.11-0.59); MONO% 7.3 % (1.7-9.3); MPV 11.4 FL (7.4-10.4); NEUT# 2.86 X1000 (1.4-6.5); NEUT% 71.3 % (42.2-75.2); PLT 321 X1000 (130-400); RBC 4.04 XMIL (4.2-5.4); RDW 17.9 % (11.5-14.5)
[2019-09-28 08:45] LABS: AGAP 9; ALBUMIN 2.5 g/dL (3.5-5.0); ALKALINE PHOSPHATASE 93 U/L (32-104); BUN 4 mg/dL (8-22); CALCIUM 8.5 mg/dL (8.8-10.2); CHLORIDE 106 mmol/L (98-107); COSMO 288; CREATININE 0.5 mg/dL (0.5-0.9); ESTIMATED GFR > 60; GLUCOSE 80 mg/dL (70-104); GOT 10 U/L (10-30); GPT < 5 U/L (10-36); POTASSIUM 3.2 mmol/L (3.5-5.1); SODIUM 147 mmol/L (136-145); TCO2 32 mmol/L (25-35); TOTAL BILIRUBIN 0.58 mg/dL (0.20-1.00)
--- NOTE | 2019-09-28 17:55 | PROGRESS NOTE ---
DATE: 09/28/2019 SUBJECTIVE: The patient looks well. She is still having a little bit of cough. OBJECTIVE: Vital signs: Blood pressure 139/66, heart rate of 70, respiratory rate 18, temperature 97.5 degrees, 100% on 2 L. Cardiovascular: Regular rate and rhythm. Pulmonary: Bilateral breath sounds. Clear from my standpoint. GI: Soft, nontender, nondistended. Bowel sounds are positive. LABORATORY: White count 4, hemoglobin and hematocrit 10 and 34, platelets of 321,000. Sodium is 147, potassium is 3.2. PROBLEM LIST: Left lower lobe pneumonia. The chest x-ray already shows some improvement but she has had infiltrates there off and on since August. She has had persistent infiltrates over a month, so I think she needs a CT to rule out other etiologies including malignancy. She has no white count. No fever. She was essentially admitted because the ER thought she had a pneumonia and 5 days later brought her back in. In any case, she is empirically on antibiotics. We will continue to monitor. The family has requested every call center consultant possible. We will get Dr. Pierre, her information technology advisor, see here because she has pneumonia. I think that is reasonable. She has been having chronic diarrhea which is persistent, which has been going on for a while. But they would like Dr. Schulte to see her because he was supposed to see her as an outpatient, but has not seen her since. I explained that we would try to avoid endoscopy until she got over her pneumonia. Hypertension, which is been stable. They had requested Dr. Brenner but I do not see an active cardiac issue as far as active inpatient cardiac issue. I discuss we would hold off on consulting 3 people, that all of these things could be done as an outpatient. So they seem to be okay with that. But in any case, we will focus on treating the pneumonia, if it is indeed pneumonia. The diarrhea, we have collected stool studies. She has had some imaging, but it really did not tell us too much. So we will see what Dr. Schulte says. cc: Lazaro George MD
[2019-09-28] MEDS: SYMBICORT 160/4.5 MICROGM INHALER INH SCH (19:34)
[2019-09-28] MEDS: VENTOLIN HFA INH SCH (19:41)
[2019-09-28] MEDS ORDERED: ARICEPT PO SCH (21:00)
[2019-09-28] MEDS: PRAVACHOL PO SCH (21:26)
[2019-09-28] MEDS: MACROBID PO SCH (21:26)
[2019-09-28] MEDS: SEROQUEL PO SCH (21:26)
[2019-09-28] MEDS: NUEDEXTA 20-10 MG CAPSULE PO SCH (21:26)
[2019-09-29] MEDS: DUONEB (A & A) INH SCH ×6 (03:26→23:22)
[2019-09-29] MEDS: VENTOLIN HFA INH SCH ×2 (07:55→20:17)
[2019-09-29] MEDS: INCRUSE ELLIPTA INH SCH (07:56)
[2019-09-29] MEDS: SYMBICORT 160/4.5 MICROGM INHALER INH SCH ×2 (07:57→20:16)
[2019-09-29] MEDS ORDERED: SODIUM CHLORIDE 0.9% INJ SCH (08:15)
[2019-09-29 08:16] LABS: BASO# 0.06 X1000 (0.0-0.2); BASO% 1.1 % (0.0-0.8); EOS# 0.34 X1000 (0.0-0.7); EOS% 6.3 % (0.0-10.0); HEMATOCRIT 36.2 % (37.0-47.0); LYMPH# 0.78 X1000 (1.2-3.4); LYMPH% 14.3 % (20.5-51.1); MCH 26.1 PG (27-31); MCHC 30.4 g/dL (33-37); MONO# 0.28 X1000 (0.11-0.59); MONO% 5.1 % (1.7-9.3); MPV 11.3 FL (7.4-10.4); NEUT# 3.98 X1000 (1.4-6.5); NEUT% 73.2 % (42.2-75.2); PLT 339 X1000 (130-400); RBC 4.21 XMIL (4.2-5.4); WBC 5.44 X1000 (4.8-10.8)
[2019-09-29 08:45] LABS: AGAP 9; BUN 4 mg/dL (8-22); CHLORIDE 103 mmol/L (98-107); COSMO 283; CREATININE 0.5 mg/dL (0.5-0.9); ESTIMATED GFR > 60; GLUCOSE 81 mg/dL (70-104); POTASSIUM 3.3 mmol/L (3.5-5.1); SODIUM 144 mmol/L (136-145); TCO2 32 mmol/L (25-35)
[2019-09-29] MEDS ORDERED: VITAMIN D PO SCH (09:00)
--- NOTE | 2019-09-29 09:45 | Diag Imaging Result Doc PS360 ---
EXAM: KUB ABDOMEN HISTORY: evaluate for constipation or obstruction TECHNIQUE: Two views COMPARISON: 11/24/2017 FINDINGS: No bowel obstruction. There is only small amount stool in the colon. No organomegaly. Moderate atherosclerosis. Pelvic calcifications similar to the prior exam. Slight curvature to the spine. IMPRESSION: No significant constipation Electronically signed by Haroon Jordan 09/29/2019 9:43 AM
--- NOTE | 2019-09-29 10:11 | PROVIDER PROGRESS NOTE ---
Progress Note Additional pulmonary note: CT images seen. This is likely persistent pneumonia and I agree with antibiotics. Given advance COPD, pneumonia radiologic resolution is prolonged. Will follow out patient CT imaging.
[2019-09-29] MEDS: FOLIC ACID PO SCH (10:27)
[2019-09-29] MEDS: NUEDEXTA 20-10 MG CAPSULE PO SCH ×2 (10:27→21:18)
[2019-09-29] MEDS: PEPCID IV SCH ×2 (10:27→21:17)
[2019-09-29] MEDS: ASPIRIN EC PO SCH (10:27)
[2019-09-29] MEDS: DALIRESP PO SCH (10:28)
[2019-09-29] MEDS: MACROBID PO SCH ×2 (10:28→21:17)
--- NOTE | 2019-09-29 11:02 | GASTROENTEROLOGY CONSULTATION ---
DATE: 09/29/2019 PRIMARY CARE DOCTOR: Joe Hutchinson REASON FOR CONSULTATION: Chronic diarrhea, abdominal pain, and CT scan showing possible enteritis. HISTORY OF PRESENT ILLNESS: Ms. Dowling is 78-year-old female who has history of severe COPD, is on home oxygen 02/04, dementia was admitted with chronic diarrhea and dehydration, anemia. According to the patient and family she has been to the [facility] where she was tested. She tested negative for C-diff. She continues to be dehydrated and continues to have diarrhea after eating. She denies any nausea, vomiting, vomiting blood. She denies any blood in the stools. She is mildly anemic. She has never had a colonoscopy in the past. While in the hospital. She has been given IV fluids and she had a formed brown stools. She has stool studies order which are showing moderate leukocytes and negative ova and parasites. Blood cultures negative x2. Gastroenterology was consulted for further management. PAST MEDICAL HISTORY: Dementia, hypertension, chronic diarrhea, normocytic anemia, hearing loss, hiatal hernia COPD on home oxygen 02/04. PAST SURGICAL HISTORY: None. SOCIAL HISTORY: Started smoking at age 16. She smoked 1 to 2 packs a day. She quit several years ago. No history of alcohol, illicit drug abuse. She has a very supportive family at bedside. She has never been . She has no children. FAMILY HISTORY: Mother with breast cancer. Father of AL. ALLERGIES TO: Cefuroxime. MEDICATIONS IN THE HOSPITAL: Dextromethorphan/quinidine b.i.d., Tylenol 650 every 4 hours, albuterol/ipratropium inhalation and aspirin 81 every day albuterol inhaler 2 puffs inhaled b.i.d. budesonide/formoterol 1 puff inhaled b.i.d., vitamin D 3, Pepcid 20 mg IV b.i.d. folic acid 1 mg every day. Levaquin 750 mg every 48 hours, nitrofurantoin 100 mg p.o. b.i.d., Pravachol 80 mg daily, Seroquel 25 mg p.o. at bedtime, Daliresp 500 mcg p.o. daily, Umeclidinium bromide 1 puff inhaled daily. She is on a regular diet. REVIEW OF SYSTEMS: Denies any current fevers, rigors, chills, chest pain, shortness of breath. She does have baseline COPD. She is on home oxygen. She has been a chronic smoker, quit a few years ago. She has arthritis. Denies any neurological complaints. She has mild dementia. She does complain of bowel irregularity, more so after eating and upset stomach after eating and causing diarrhea and dehydration. PHYSICAL EXAMINATION: Vital signs: Temperature 98 degrees, pulse rate of 82, respiratory rate of 16, blood pressure 150/56, saturating 92% on nasal cannula. Body weight of 107 pounds 9 ounces. BMI of 19.1 kg/m2. General: Thinly built, lying in bed, in no acute distress. HEENT: Mild pallor. No icterus. Pupils equal, reactive to light and accommodation. Nasal cannula in place. Neck: Supple. Abdomen: Soft, nontender, nondistended. No guarding or rebound. Extremities: No cyanosis, clubbing, edema. Neuro: Alert awake oriented to time, place, and her family. LABORATORY DATA: Hemoglobin and hematocrit is 11 and 36.2, white count of 5.4, platelet count of 339,000, MCV 86. Sodium 144, potassium 3.3, chloride 103, bicarb 30, anion gap 9, BUN of 4. Creatinine 0.5. Glucose of 81, calcium is 9. TSH 0.73, AST 10 ALT less than 5, alkaline phosphatase 93, total protein is 5. Albumin of 2.5. Stool white cells moderate. Stool ova and parasites negative. Sputum culture 3+ white cells, normal marcia. Blood culture x2 negative after [address] scan was done on 09/22/2019 was read as severe stable COPD with chronic bronchitis. Grossly stable endobronchial spread bronchopneumonia lung bases bilaterally left greater than right. Stable left adrenal gland adenoma, stable non obstructing right renal stone. There is grossly stable antritis in the pelvis no obvious bowel obstruction. No abdominal free air or free fluid. Prior to that, she had another CT scan on August 2019 which showed evidence of long segment inflammation of the mid and distal small bowel with wall thickening and hyperemia. And moderate degenerate changes of the spine. Chest x-ray showed improved left lower lobe pneumonia. IMPRESSION/PLAN: 1. Left lower lobe pneumonia. 2. Chronic obstructive pulmonary disease. 3. Requiring home oxygen. 4. Former smoker. 5. Chronic diarrhea. 6. Mild anemia. 7. Hypoalbuminemia. 8. CT scan showing evidence of enteritis in the small intestine in the mid and distal. RECOMMENDATIONS: We will check the stool studies. We will check for C-diff and stool culture. We will keep her on Pepcid b.i.d. for GI prophylaxis. She will continue to be treated for pneumonia with Levaquin per primary care team. She is on nebulizer treatment per primary team. We have spoken about the possibility of flexible sigmoidoscopy. The patient and family wants to pursue with colonoscopy. The patient has these symptoms for many months causing dehydration requiring multiple hospital visits so we will schedule her for tomorrow morning with Dr. Hurtado. The risks benefits indications alternatives of colonoscopy and flexible sigmoidoscopy were discussed with the patient and family at bedside. She is obviously high risk because of multiple medical comorbid conditions. This was with the patient and family in detail. The patient and family acknowledges and agreed to proceed with the above. cc: Layton Schulte MD MTDD
--- NOTE | 2019-09-29 11:03 | PROVIDER PROGRESS NOTE ---
Progress Note Patient has been seen and examined. A full dictation to follow.
--- NOTE | 2019-09-29 11:47 | Diag Imaging Result Doc PS360 ---
EXAM: CT THORAX W/CONTRAST INDICATION: pneumonia TECHNIQUE: This exam was performed using automated exposure control, adjustment of mA or kV according to patient size, and/or use of iterative reconstruction technique. COMPARISON: CT abdomen and pelvis dated 09/22/2019. No prior dedicated chest CT is available for comparison. FINDINGS: There is bronchiectasis at both lower lung zones with bronchial mucosal thickening indicating bronchitis. There are patchy airspace infiltrates in both lower lobes, mainly at the bases, indicating pneumonia, more extensive at the left lower lobe. There is also likely a component of bibasilar atelectasis. This process has worsened somewhat since the previous abdominal CT. There is a calcified granuloma in the right upper lobe and there is mild patchy peripheral scarring at both upper lung zones. There is trace pleural fluid on the right. There is no pneumothorax. There are calcified mediastinal and hilar lymph nodes indicating prior granulomatous disease. No significant lymphadenopathy is appreciated, otherwise. There is no cardiomegaly. There is a stable small to moderate-sized hiatal hernia. There is a small left thyroid lobe nodule noted incidentally. Review of the upper abdomen including the large left adrenal mass most compatible with an adenoma is unchanged. IMPRESSION: 1.Bronchiectasis with bronchitis and patchy infiltrate indicating pneumonia involving both lower lobes, mainly at the bases and worse on the left. This process has worsened somewhat since the previous abdominal CT. 2.Other incidental/nonacute findings detailed above. Electronically signed by Juvenal Ames 09/29/2019 11:44 AM
[2019-09-29] MEDS ORDERED: GOLYTELY PO ONE (14:00)
--- NOTE | 2019-09-29 16:50 | PROGRESS NOTE ---
DATE: 09/29/2019 SUBJECTIVE: Patient has no major complaints. OBJECTIVE: Vital signs: Blood pressure is 126/46, heart rate 69, respiratory rate 20, temperature 98.1 degrees, 95% on 2 L. Cardiovascular: Regular rate and rhythm. Pulmonary: Bilateral breath sounds. Clear to auscultation. GI: Soft, nontender, nondistended. Bowel sounds are positive. LABORATORY: White count 5, hemoglobin and hematocrit 11 and 36, platelets 339,000. Potassium 3.3. PROBLEM LIST: 1. Left lower lobe pneumonia. We will continue antibiotics. Pulmonary is following. Appreciate their input. Continue pulmonary toilet. 2. Chronic subacute diarrhea. Plan for colonoscopy at the discretion of GI. Appreciate their input. She is still having diarrhea. She is still on antibiotics. We will continue to follow. Disposition is stable. 3. Dementia. I explained to the family we are going to show how that works. Continue to monitor closely. cc: Lazaro George MD
--- NOTE | 2019-09-29 18:35 | CONSULTATION ---
DATE OF CONSULTATION: 09/29/2019 REQUESTING PROVIDER: Lazaro George MD REASON FOR CONSULTATION: Pneumonia. HISTORY OF PRESENT ILLNESS: This is a 78-year-old female with a medical history of COPD, chronic hypoxic respiratory failure, obstructive sleep apnea, dementia, hypertension, hyperlipidemia, chronic diarrhea, iron deficiency anemia, hiatal hernia and left adrenal gland adenoma. She apparently also has recurrent pneumonia with last admission from 09/02/2019 to 09/04/2019 for two episodes of syncope and bibasilar pneumonia. She presented to the ER on 09/27/2019 with acute cough-induced left lower chest pain Initial workup in the ER revealed improved left lower lobe pneumonia. Considering recurrence of pneumonia, patient has been admitted to the medical floor for further evaluation and management. Patient currently is lying in bed with no acute distress noted. She is on nasal cannula at 2 L and tolerates well. The patient's brother and his family at the bedside. They report the patient has been very forgetful recently and has worsening shortness of breath with activities. The patient also has chronic poor appetite with significant recent weight loss over 20 to 30 pounds since last August. The patient states that she does not want to eat because after eating she has to run to the bathroom for diarrhea. Family also reports patient has pedal edema at times. The patient has wheezing at times and chronic dry cough with possibly some production at times but patient never spits it out. The patient did complain of right lower lobe pleurisy before admission, but currently the patient states she is fine. She has no pain with either cough or deep breath. The patient has no fever, chills, heartburn or paroxysmal nocturnal dyspnea. PAST MEDICAL AND SURGICAL HISTORY: 1. COPD, severe with severe chronic bronchitis. Last PFT on 01/30/2019 showed FEV1 31% on Symbicort, Incruse, Daliresp and DuoNeb at home. Family reported that patient has to use the DuoNeb nebulizer about 3 times daily recently for shortness of breath or wheezing. 2. Chronic hypoxic respiratory failure on continuous oxygen 2 L/minute at home for a long time. 3. Obstructive sleep apnea on home CPAP therapy. 4. Recurrent pneumonia first shown on chest x-ray on 06/02/2019 with left lower lobe opacity, treated with doxycycline, later shown by CT abdomen and pelvis with IV contrast on 09/02/2019 with severe COPD, severe chronic bronchitis and significant chronic atypical pneumonia in the lung bases consistent with aspiration or atypical medical bacteria treated with Levaquin and Flagyl. Recently shown on CT abdomen and pelvis without contrast on 09/22/2019 with stable severe COPD, chronic bronchitis and grossly stable endobronchially spread bronchopneumonia in the lung bases bilaterally, left greater than right, treated with Macrobid. 5. Dementia. 6. Hypertension. 7. Hyperlipidemia. 8. Chronic diarrhea with recently diagnosed severe enteritis and reported recent significant weight loss. 9. Iron deficiency anemia. 10. Hiatal hernia. 11. Left adrenal gland adenoma. 12. History of some kind of skin cancer status post removal on the patient's face. SOCIAL HISTORY: The patient lives at home with her brother and brother's family. She is a former smoker. She started smoking at the age of 16 and used to smoke 1 to 2 packs per day but has quit for many years. She has no alcohol or illicit drug use. She has never been . FAMILY HISTORY: Significant for cancer. The patient's parents and most of siblings have some kind of cancer. ALLERGIES: Cefuroxime. REVIEW OF SYSTEMS: A 10-point review of systems was conducted and pertinent is listed within the HPI, otherwise noncontributory. PHYSICAL EXAMINATION: Vital Signs: Temperature 98.0, blood pressure 150/56, pulse 80, respiratory rate 18, oxygen saturation 98% on nasal cannula at 2 L. General: Chronically ill- appearing, very pleasant and cooperate with some dementia and difficulty hearing, lying in bed with no acute distress noted. HEENT: Atraumatic, normocephalic. Trachea midline. Mucosa pink and moist. Some scratches on the neck anteriorly with dressing in place. Respiratory: Even and unlabored. Symmetrical excursion. Auscultation revealed some coarse inspiratory crackles bilaterally. Cardiovascular: Regular rate and rhythm. Gastrointestinal: Soft, nontender, nondistended, normoactive bowel sounds in all 4 quadrants. Extremities: No pedal edema. No cyanosis. Mild clubbing noted. Dorsalis pedis 2+ bilaterally. Neurologic: Difficulty hearing, alert and oriented at least to person. Able to follow simple commands. LAB DATA: White blood cell 5.44, hemoglobin 11.0, hematocrit 36.2, platelet 339,000. Sodium 144, potassium 3.3, chloride 103, carbon dioxide 32, BUN 4, creatinine 0.5, glucose 81. IMAGING DATA: CT thorax with contrast revealed bronchial athetosis atelectasis with bronchitis and patchy infiltrates indicating pneumonia involving both lower lobes, mainly at the bases and worse on the left, which has worsened since 09/23/2019, likely a component of bibasilar atelectasis or calcified granuloma in the right upper lobe and mild patchy peripheral scarring at both upper lung zones and chest pleural fluid on the right. ASSESSMENT: This is a 78-year-old female with a medical history of chronic obstructive pulmonary disease, chronic hypoxic respiratory failure, obstructive sleep apnea, recurrent pneumonia, dementia, hypertension, hyperlipidemia, chronic diarrhea with recently diagnosed severe enteritis and reported recent significant weight loss, iron deficiency anemia, hiatal hernia and left adrenal gland adenoma. She has been admitted since 09/28/2019 with left lower lobe pneumonia and chronic diarrhea. 1. Chronic hypoxemic respiratory failure. 2. Bilateral lower lobe pneumonia, mainly at the bases with left side worse than the right side. 3. Bronchiectasis with bronchitis and severe COPD. 4. Chronic diarrhea with normocytic anemia. 5. Enteritis in the small intestine in the middle and distal. 6. Dementia. PLAN: 1. Continue supplemental oxygen. 2. Continue antibiotics including Macrobid and Levaquin. Continue bronchodilators. 3. Follow up with sputum culture, stool culture, blood culture, and chest x-ray. 4. Follow up outpatient CT imaging after antibiotic therapy. 5. Dr. Schulte is on board. 6. Further recommendations pending hospital course. Thank you for the courtesy of this consult. Dictated by MONIK Whitney for Luis Alberto Pirere MD cc: MONIK Whitney MD Case seen and examined, EMR, labs, CT and other Md notes seen and appreciated. Agree with above and see orders. MTDD
[2019-09-29] MEDS: PRAVACHOL PO SCH (21:18)
[2019-09-29] MEDS: SEROQUEL PO SCH (21:18)
[2019-09-29] MEDS ORDERED: LEVAQUIN 750 MG/D5W 750 MG/150 ML IVPB IV SCH (22:00)
[2019-09-30] MEDS: DUONEB (A & A) INH SCH ×7 (04:10→23:48)
[2019-09-30 07:38] LABS: BASO# 0.04 X1000 (0.0-0.2); BASO% 0.8 % (0.0-0.8); EOS# 0.38 X1000 (0.0-0.7); HEMATOCRIT 36.1 % (37.0-47.0); HEMOGLOBIN 10.8 g/dL (12.0-16.0); LYMPH% 14.7 % (20.5-51.1); MCH 25.7 PG (27-31); MCHC 29.9 g/dL (33-37); MONO# 0.26 X1000 (0.11-0.59); MONO% 5.5 % (1.7-9.3); MPV 10.9 FL (7.4-10.4); NEUT# 3.37 X1000 (1.4-6.5); PLT 337 X1000 (130-400); RDW 17.9 % (11.5-14.5); WBC 4.75 X1000 (4.8-10.8)
[2019-09-30] MEDS: INCRUSE ELLIPTA INH SCH (07:42)
[2019-09-30] MEDS: SYMBICORT 160/4.5 MICROGM INHALER INH SCH ×2 (07:42→19:57)
[2019-09-30] MEDS: VENTOLIN HFA INH SCH ×2 (08:00→20:36)
[2019-09-30] MEDS: PEPCID IV SCH (08:11)
[2019-09-30 08:16] LABS: AGAP 8; BUN 4 mg/dL (8-22); CALCIUM 9.2 mg/dL (8.8-10.2); CHLORIDE 100 mmol/L (98-107); COSMO 277; CREATININE 0.6 mg/dL (0.5-0.9); ESTIMATED GFR > 60; GLUCOSE 78 mg/dL (70-104); POTASSIUM 3.9 mmol/L (3.5-5.1); SODIUM 141 mmol/L (136-145); TCO2 33 mmol/L (25-35)
[2019-09-30] MEDS ORDERED: XYLOCAINE-MPF 2% ONE (08:50)
[2019-09-30] MEDS ORDERED: DIPRIVAN 1% ONE (08:50)
--- NOTE | 2019-09-30 09:48 | ENDOSCOPY OPERATIVE NOTE ---
[facility] ENDOSCOPY OPERATIVE NOTE , COLONOSCOPY PROCEDURE REPORT EXAM DATE: 09/30/2019 PATIENT NAME: Louie Dowling MR #: [id number] BIRTHDATE: 1940 ENDOSCOPIST: Swapnil Hurtado MD STATUS: inpatient MUSIC LIBRARIAN: INDICATIONS: The patient is a 78 yr old female here for a colonoscopy due to chronic diarrhea and co litis. PROCEDURE PERFORMED: Colonoscopy with biopsy and Colonoscopy with snare polypectomy MEDICATIONS: Per Anesthesia PREP TYPE: GoLytely
[2019-09-30] MEDS: NUEDEXTA 20-10 MG CAPSULE PO SCH ×2 (10:27→21:02)
[2019-09-30] MEDS: ASPIRIN EC PO SCH (10:27)
[2019-09-30] MEDS: DALIRESP PO SCH (10:27)
[2019-09-30] MEDS: FOLIC ACID PO SCH (10:28)
[2019-09-30] MEDS: MACROBID PO SCH (10:28)
--- NOTE | 2019-09-30 13:07 | PROVIDER PROGRESS NOTE ---
Progress Note Dr. Pierre Progress Note/Pulmonary and or critical care We appreciated progress of care, Complications, change in diagnosis, and instructions to patient under direct supervision of Dr. Pierre. Subjective: We note the level of consciousness, bed (chair) position, family presence (if any), level of lethargy, feeling of symptoms, and changes from baseline condition/symptom. The patient is lying in bed with no acute distress noted. She is on a NC at 2 L and tolerates well. She states she is feeling better. She had colonoscopy performed this am. She states she is ready to eat her lunch. Family at the bedside. They report that patient had a good rest last night. Objective: Vital Signs: We reviewed EMR current values for Pulse rate, Blood pressure, Pulse rate, respiratory rate and Pulse oximetry. Also noted other values and trends if p resent (e.g. I/O, CVP). Vital Signs 09/29/19 15:12 09/29/19 20:40 09/29/19 22:00 Temperature 98.1 F 97.7 F Pulse Rate 69 61 59 L Respiratory Rate 20 16 16 Blood Pressure 126/46 139/62 O2 Sat by Pulse Oximetry 95 97 100 09/30/19 05:49 09/30/19 07:25 09/30/19 07:50 Temperature 97.5 F L 97.9 F Pulse Rate 80 63 67 Respiratory Rate 18 22 18 Blood Pressure 135/49 134/57 O2 Sat by Pulse Oximetry 100 100 99 09/30/19 09:10 09/30/19 12:03 Temperature 97.9 F 97.9 F Pulse Rate 63 80 Respiratory Rate 22 19 Blood Pressure 134/57 116/54 O2 Sat by Pulse Oximetry 100 Intake & Output 09/29/19 09/30/19 09/30/19 19:59 07:59 19:59 Intake Total 480 / 480 0 / 480 Output Total 400 / 400 Balance 80 / 80 0 / 80 Intake: Intake, IV Amount 0 / 0 Intake, Oral Amount 480 / 480 Output: Output, Urine Void Amount 400 / 400 Other: Percent of Meal Consumed 100% Number of Bowel Movements 4 Bowel Movement Color and Liquid Character Physical Examination: General: Lying in bed with no acute distress noted. HEENT: Atraumatic. Normocephalic. No masses. Mucosa pink and moist. Chest: [place] and unlabored. Rhonchi bilaterally which clears up by coughing. Bilaterally coarse crackles. CVS: S1 S2. Abdomen: Non-tender. Soft. Bowel sounds present. Extremities: No pedal edema. No cyanosis. Mild clubbing noted. Neuro: A/O with confusion at times. Difficulty hearing. Speech fluent. Follow commands. Labs and Radiology: Reviewed available labs and radiology values available at time of EMR review. Laboratory Results 09/30/19 09/30/19 07:00 07:00 WBC 4.75 L RBC 4.20 Hgb 10.8 L Hct 36.1 L MCV 86.0 MCH 25.7 L MCHC 29.9 L RDW Std Deviation 17.9 H Plt Count 337 MPV 10.9 H Immature Gran % (Auto) 0.0 Neut % (Auto) 71.0 Lymph % (Auto) 14.7 L [place] % (Auto) 5.5 Eos % (Auto) 8.0 Baso % (Auto) 0.8 Immature Gran # (Auto) 0.00 Neut # (Auto) 3.37 Lymph # (Auto) 0.70 L [place] # (Auto) 0.26 Eos # (Auto) 0.38 Baso # (Auto) 0.04 Sodium 141 Potassium 3.9 D Chloride 100 Carbon Dioxide 33 Anion Gap 8 BUN 4 L Creatinine 0.6 Estimated GFR/1.73 m2 > 60 BUN/Creatinine Ratio 7 Glucose 78 Calculated Osmolality [address] Pierre evaluated and additional note below. Evaluation time in minutes: 10 minutes. Assessment: Chronic hypoxemic respiratory failure. Bilateral lower lobe pneumonia, mainly at the bases with left side worse than the right side. Bronchiectasis with bronchitis and severe COPD. Chronic diarrhea with normocytic anemia. S/P colonoscopy today. Dementia. Plan: Continue current treatment and supportive care per admitting and other teams on the case. Antibiotics including Macrobid and Levaquin. Bronchodilators Appropriate DVT and GI prophylaxis. Input was appreciated from Admitting MD and other teams on the case.
[2019-09-30] MEDS: IMODIUM PO PRN (13:28)
[2019-09-30] MEDS ORDERED: QUESTRAN PO ONE (15:07)
--- NOTE | 2019-09-30 15:44 | PROGRESS NOTE ---
DATE: 09/30/2019 SUBJECTIVE: Patient has no major complaints. She looks well. Sitting up in bed. OBJECTIVE: Vital signs: Blood pressure is 116/54, heart rate 80, respiratory 19, temperature 97.9 degrees, 100% on 2 L. Cardiovascular: Regular rate and rhythm. Pulmonary: Bilateral breath sounds. Clear to auscultation. GI: Soft, nontender, nondistended. Bowel sounds are positive. LABORATORY DATA: White count is 4, hemoglobin and hematocrit 10 and 36, platelets 337,000. PROBLEMS: 1. Left lower lobe pneumonia. She is on Levaquin. This will be day 2. 2. Diarrhea. Unclear source, but her colonoscopy suggested she had some mild infectious colitis. I am going to start Flagyl in addition to her Levaquin. Her stool studies have been negative thus far. 3. Dementia. We will continue regular medication. She appears to be doing well. 4. Disposition. I think she can probably go home tomorrow and we will continue to follow. cc: Lazaro George MD
[2019-09-30] MEDS: LEVAQUIN PO SCH (18:15)
[2019-09-30] MEDS: SEROQUEL PO SCH (21:02)
[2019-09-30] MEDS: FLAGYL PO SCH (21:02)
[2019-09-30] MEDS: PEPCID PO SCH (21:02)
[2019-09-30] MEDS: PRAVACHOL PO SCH (21:02)
[2019-10-01] MEDS: DUONEB (A & A) INH SCH ×6 (03:36→23:18)
[2019-10-01] MEDS: FLAGYL PO SCH ×3 (05:47→21:57)
[2019-10-01 07:54] LABS: BASO# 0.03 X1000 (0.0-0.2); BASO% 0.6 % (0.0-0.8); EOS# 0.47 X1000 (0.0-0.7); HEMATOCRIT 33.9 % (37.0-47.0); HEMOGLOBIN 10.2 g/dL (12.0-16.0); LYMPH# 0.66 X1000 (1.2-3.4); LYMPH% 12.6 % (20.5-51.1); MCH 26.2 PG (27-31); MCHC 30.1 g/dL (33-37); MCV 86.9 FL (81-99); MONO# 0.31 X1000 (0.11-0.59); MONO% 5.9 % (1.7-9.3); MPV 10.7 FL (7.4-10.4); NEUT# 3.76 X1000 (1.4-6.5); NEUT% 71.9 % (42.2-75.2); PLT 336 X1000 (130-400); RDW 18.1 % (11.5-14.5); WBC 5.23 X1000 (4.8-10.8)
[2019-10-01] MEDS: DALIRESP PO SCH (08:11)
[2019-10-01] MEDS: NUEDEXTA 20-10 MG CAPSULE PO SCH ×2 (08:11→21:57)
[2019-10-01] MEDS: PEPCID PO SCH ×2 (08:11→21:57)
[2019-10-01] MEDS: FOLIC ACID PO SCH (08:11)
[2019-10-01] MEDS: QUESTRAN PO SCH ×2 (08:11→21:58)
[2019-10-01] MEDS: ASPIRIN EC PO SCH (08:11)
[2019-10-01 08:40] LABS: AGAP 8; BUN 6 mg/dL (8-22); CALCIUM 9.1 mg/dL (8.8-10.2); CHLORIDE 102 mmol/L (98-107); COSMO 276; CREATININE 0.6 mg/dL (0.5-0.9); ESTIMATED GFR > 60; GLUCOSE 83 mg/dL (70-104); POTASSIUM 3.2 mmol/L (3.5-5.1); SODIUM 140 mmol/L (136-145); TCO2 30 mmol/L (25-35)
[2019-10-01] MEDS: SYMBICORT 160/4.5 MICROGM INHALER INH SCH ×2 (09:12→20:11)
[2019-10-01] MEDS: INCRUSE ELLIPTA INH SCH (09:12)
[2019-10-01] MEDS: VENTOLIN HFA INH SCH ×2 (09:39→20:11)
[2019-10-01] MEDS ORDERED: KLOR-CON PO ONE (11:20)
--- NOTE | 2019-10-01 14:32 | PROVIDER PROGRESS NOTE ---
Progress Note Dr. Pierre Progress Note/Pulmonary and or critical care We appreciated progress of care, Complications, change in diagnosis, and instructions to patient under direct supervision of Dr. Pierre. Subjective: We note the level of consciousness, bed (chair) position, family presence (if any), level of lethargy, feeling of symptoms, and changes from baseline condition/symptom. The patient is lying in bed with no acute distress noted. She is on a NC at 2 L and tolerates well. She states she is feeling ok. Family at the bedside reports that she is still in poor appetite and has diarrhea this am after breakfast. Family also notices that she appears to have trouble with swallow at times. She has been resting better at night with Seroquel. She also has constant leg and hand movements. Objective: Vital Signs: We reviewed EMR current values for Pulse rate, Blood pressure, Pulse rate, respiratory rate and Pulse oximetry. Also noted other values and trends if present (e.g. I/O, CVP). Vital Signs 09/30/19 19:29 09/30/19 19:57 10/01/19 04:34 Temperature 98.2 F 98.2 F Pulse Rate 78 78 86 Respiratory Rate 18 Blood Pressure 120/48 109/63 O2 Sat by Pulse Oximetry 96 97 100 10/01/19 07:21 10/01/19 09:16 10/01/19 11:43 Temperature 97.8 F Pulse Rate 78 68 93 H Respiratory Rate 19 14 14 Blood Pressure 110/41 O2 Sat by Pulse Oximetry 98 94 L 10/01/19 12:09 Temperature 98.0 F Pulse Rate 94 H Respiratory Rate 21 Blood Pressure 110/45 O2 Sat by Pulse Oximetry 98 Intake & Output 09/30/19 10/01/19 10/01/19 19:59 07:59 19:59 Intake Total 650 / 650 Output Total 0 / 0 Balance 650 / 650 Intake: Intake, IV Amount 10 / 10 Intake, Oral Amount 640 / 640 Output: Output, Urine Void Amount 0 / 0 Other: Percent of Meal Consumed 75% NG/Feeding Tube Residual Check No & Amount Number of Continent Voids Not 2 Measured Number of Incontinent Voids 2 Number of Bowel Movements 0 0 Physical Examination: General: Lying in bed with no acute distress noted. HEENT: Atraumatic. Normocephalic. No masses. Mucosa pink and moist. Chest: [place] and unlabored. Rhonchi bilaterally which clears up by coughing. Bilaterally coarse crackles. Mild inspiratory and expiratory wheezing on the left side. CVS: S1 S2. Abdomen: Non-tender. Soft. Bowel sounds present. Extremities: No pedal edema. No cyanosis. Mild clubbing noted. Neuro: A/O with confusion at times. Difficulty hearing. Speech fluent. Follow commands. Labs and Radiology: Reviewed available labs and radiology values available at time of EMR review. Laboratory Results 10/01/19 10/01/19 07:25 07:25 WBC 5.23 RBC 3.90 L Hgb 10.2 L Hct 33.9 L MCV 86.9 MCH 26.2 L MCHC 30.1 L RDW Std Deviation 18.1 H Plt Count 336 MPV 10.7 H Immature Gran % (Auto) 0.0 Neut % (Auto) 71.9 Lymph % (Auto) 12.6 L [place] % (Auto) 5.9 Eos % (Auto) 9.0 Baso % (Auto) 0.6 Immature Gran # (Auto) 0.00 Neut # (Auto) 3.76 Lymph # (Auto) 0.66 L [place] # (Auto) 0.31 Eos # (Auto) 0.47 Baso # (Auto) 0.03 Sodium 140 Potassium 3.2 L D Chloride 102 Carbon Dioxide 30 Anion Gap 8 BUN 6 L Creatinine 0.6 Estimated GFR/1.73 m2 > 60 BUN/Creatinine Ratio 10 Glucose 83 Calculated Osmolality [address] Pierre evaluated and additional note below. Evaluation time in minutes: 10 minutes. Assessment: Chronic hypoxemic respiratory failure. Bilateral lower lobe pneumonia, mainly at the bases with left side worse than the right side. Bronchiectasis with bronchitis and severe COPD. Chronic diarrhea with normocytic anemia. S/P colonoscopy today. Dementia. Plan: Continue current treatment and supportive care per admitting and other teams on the case. Antibiotics including Macrobid and Levaquin. Bronchodilators. Swallow evaluation. Appropriate DVT and GI prophylaxis. Input was appreciated from Admitting MD and other teams on the case.
[2019-10-01] MEDS ORDERED: NS 1,000 ML IV ONE (15:12)
--- NOTE | 2019-10-01 16:23 | GASTROENTEROLOGY PROGRESS NOTE ---
DATE: 10/01/2019 SUBJECTIVE: Ms. Dowling is a 78-year-old female resting in bed. Family at the bedside. The patient has dementia and she has lost her short-term memory. The patient could not remember what she had this morning but was able to tell her name and . She denied any nausea, vomiting or abdominal pain. Family mentioned noticing blood in her stools last night and that the patient was not able to tolerate her breakfast well, she only ate a few bites and was having difficulty swallowing as she was getting SOB.. OBJECTIVE: Vital Signs: Temperature 98.1 degrees, pulse 79, respirations 22, blood pressure 106/49, oxygen saturation 99% on 2 L nasal cannula. The patient's weight is 107 pounds. BMI is 19.1 kg/m2. General: Patient is alert, oriented x2 in no acute distress. HEENT: Pale conjunctivae. No icterus. PERRL. Neck: Supple. Lungs: Clear to auscultation. Cardiovascular: Regular rate and rhythm. Soft, nontender, nondistended. Active bowel sounds heard in all 4 quadrants. Extremities: No clubbing, no cyanosis. No edema. Pedal pulses 2+ bilaterally. Neurologic: Alert, oriented x2. Loss of short term memory. LABORATORY DATA: WBCs of 5.23, RBCs 3.90, hemoglobin 10.2, hematocrit 33.9. Platelet count is 336,000. Sodium 140, potassium 3.2, chloride 102, carbon dioxide 30, anion gap 8, BUN 6, creatinine 0.6, glucose 83, calcium 9.1. COLONOSCOPY FINDINGS: The patient had a colonoscopy yesterday and the findings were two 5 to 9 mm polyps in the descending colon. Polypectomy was performed, normal colonic mucosa in the ascending, transverse, descending colon, biopsy was performed using cold forceps. Mild patchy erythema found in the distal sigmoid colon and rectum. Biopsy was performed using cold forceps. Retroflexed view showed grade I first degree hemorrhoids. PATHOLOGY REPORT: Colonic mucosa showed no significant abnormalities, Descending colon polyp revealed tubular adenoma and sigmoid colon polyp revealed no abnormalities. IMPRESSION AND PLAN Colitis Chronic diarrhea Protein calorie malnutrition Pneumonia Colon polyps COPD Hemorrhoids Anemia Dementia PLAN: Ms. Dowling is a 78-year-old female. GI has been following her for chronic diarrhea and abdominal pain. The patient's stool studies have been been negative. Colonoscopy was done yesterday, findings were polyps and grade 1 hemorrhoids. Patient has been started on Imodium 2 mg PRN, her diarrhea is under control. She has been started on a regular diet. The patient is still complaining of not able to swallow her food. A modified barium swallow and speech evaluation has been ordered by the PCP. We will continue to monitor the patient and follow the plan of care per PCP. This plan was discussed with Dr. Hurtado. Dictated by MONIK Pendleton for Swapnil Hurtado MD Physician Attestation I have seen and examined the patient. I have discussed and reviewed the note by Iris RUGGIERO and agree with findings and plan as documented. In brief, Ms. Dowling is a 78 year old woman who presented with chronic diarrhea and recent diagnosis of colitis on outside imaging. She had colonoscopy on 09/30 that showed minimal patchy erythema suggestive of resolving infectious colitis in the right colon. TI was normal. Random colon biopsies were unrevealing. There were small TAs removed; also hemorrhoids. She was started on imodium and did not have any documented stools on 10/01. Per family, the patient has been refusing to eat; no reported dysphagia. She may ultimately need EGD with PEG if family is amendable if she does not start eating. Please encourage PO intake, continue imodium, IVFs prn. MTDD
--- NOTE | 2019-10-01 16:54 | PROGRESS NOTE ---
DATE: 10/01/2019 ADVANCE CARE NOTE: I spoke with the patient's and daughter, so she has probably 2 daughters and they wanted an honest opinion about her decline. The said for the last 6 weeks she has been getting worse even though she has been in and out of the hospital at times. She has told them numerous times that she does not want anything aggressive. There is not much else to offer. I think Dr. Pierre had conversations about her lung status that she is kind of maxed out on therapy from that standpoint. She is not eating. She refuses to eat. We discussed about tube feeds and hyperalimentation and they do not want to pursue that, specifically the and they feel like if her quality of life is going to be as it is now, very poor quality of life and she does not realize what is going on and her dementia has progressed over the last 6 weeks and she has carried this diagnosis for 3 years. That they would like to consider hospice and comfort care measures. We will continue current measures right now until hospice can evaluate the patient and follow. I did confirm a DNR status on her and we will continue to monitor. cc: Lazaro George MD
--- NOTE | 2019-10-01 17:15 | PROGRESS NOTE ---
DATE: 10/01/2019 SUBJECTIVE: Patient has no major complaints. She is just sitting there, but she does not want to eat. She looks pleasant. Does not look in any distress. OBJECTIVE: Blood pressure 106/49, heart rate 78, respiratory 14, temperature 98.1 degrees. Cardiovascular regular rhythm. Pulmonary diminished at the bases. GI was soft, nontender, nondistended. Bowel sounds are positive. Extremity exam no clubbing or cyanosis. Lymphatic exam no peripheral edema. Neurological exam was nonfocal. LABORATORY DATA: White count 5, hemoglobin and hematocrit 10 and 33, platelets 336,000, potassium is 3.2. PROBLEM LIST: 1. Left lower lobe pneumonia. She is on Levaquin day 3. 2. Diarrhea, most likely infectious colitis. We will continue Levaquin and Flagyl. Stool studies are negative. 3. Dementia. Per the family that has progressed over the last 6 weeks to the point where now she does not eat. She has told him that she wanted to and to be buried next to her family and she has gotten to the point where she just does not want to participate anything. We had a long discussion detailed in the advance care note. DISPOSITION: I think she should go home with hospice. We will get a palliative care consult, hospice consult and work with the family on transitioning her there. cc: Lazaro George MD
[2019-10-01] MEDS: PRAVACHOL PO SCH (21:57)
[2019-10-01] MEDS: SEROQUEL PO SCH (21:57)
[2019-10-02] MEDS: DUONEB (A & A) INH SCH ×6 (03:48→23:35)
[2019-10-02] MEDS: FLAGYL PO SCH ×3 (05:46→21:54)
--- NOTE | 2019-10-02 07:04 | Diag Imaging Result Doc PS360 ---
EXAM: CHEST-PORTABLE 10/02/2019 HISTORY: dyspnea TECHNIQUE: AP portable at 0609 COMMENT: Compared to 09/27/2019 the opacity in the left lower lobe has improved slightly. There continues to be ill-defined opacity in the medial portion of the right lower lobe and in the lingula. IMPRESSION: Improved atelectasis versus pneumonia in the left lower lobe. Electronically signed by Lev Schafer 10/02/2019 7:01 AM
[2019-10-02] MEDS: INCRUSE ELLIPTA INH SCH (07:53)
[2019-10-02] MEDS: SYMBICORT 160/4.5 MICROGM INHALER INH SCH ×2 (07:53→20:18)
[2019-10-02] MEDS: VENTOLIN HFA INH SCH ×2 (08:02→20:13)
[2019-10-02] MEDS ORDERED: QUESTRAN PO PRN (08:29)
[2019-10-02] MEDS: PEPCID PO SCH ×2 (09:45→21:54)
[2019-10-02] MEDS: FOLIC ACID PO SCH (09:45)
[2019-10-02] MEDS: DALIRESP PO SCH (09:45)
[2019-10-02] MEDS: NUEDEXTA 20-10 MG CAPSULE PO SCH ×2 (09:45→21:54)
[2019-10-02] MEDS: ASPIRIN EC PO SCH (09:45)
--- NOTE | 2019-10-02 11:27 | Diag Imaging Result Doc PS360 ---
EXAM: BA SWALLOW W/VIDEO SPEECH THER HISTORY: difficulty swallowing TECHNIQUE: Modified barium swallow with speech therapist. COMPARISON: None. FINDINGS: 74 images obtained. Fluoroscopy time is 20 seconds. Total dose is 6 mgray. The patient had no difficulty swallowing thick or thin barium. No aspiration occurred. Normal passage of barium through the upper esophagus. IMPRESSION: Negative exam Electronically signed by Haroon Jordan 10/02/2019 11:25 AM
--- NOTE | 2019-10-02 13:37 | GASTROENTEROLOGY PROGRESS NOTE ---
DATE: 10/02/2019 SUBJECTIVE: Ms. Dowling is a 78-year-old, female resting in bed. Family is at the bedside. The patient has dementia. Her short-term memory is weak. The patient could tell her name and her date of , and where she is, but not able to tell what breakfast she had this morning. The patient has denied any nausea, vomiting, or abdominal pain but family is mentioning that once the patient puts the food in the mouth or takes a bite, she feels like going to the bathroom. She had three liquid bowel movement today. PHYSICAL EXAMINATION: Vital Signs: Temperature 97.8 degrees, pulse 92, respirations 14, blood pressure 130/48, oxygen saturation 100% on 2 L nasal cannula. The patient's weight is 107 pounds. BMI is 19.1 kg/m2. General: The patient is alert, oriented x2, and in no acute distress. HEENT: Pale conjunctivae. No icterus. PERRL. Neck: Supple. Lungs: Clear to auscultation. Cardiovascular: Patient is tachycardic. Abdomen: Soft, nontender, nondistended. Active bowel sounds heard in all 4 quadrants. Extremities: No clubbing, no cyanosis, no edema. Pedal pulses 2+ present bilaterally. Neurologic: She is alert, oriented x2, with loss of short-term memory. LABORATORY DATA: Her labs are from yesterday. WBC is 5.23, RBC is 3.90, hemoglobin 10.2, hematocrit is 13.9, platelet count is 336,000. Sodium 140, potassium 3.2, chloride 102, carbon dioxide 30, anion gap 8, BUN 6, creatinine is 0.6, glucose is 83, calcium is 9.1. IMAGING: The patient's chest x-ray today showed improved atelectasis versus pneumonia in the left lower lobe. MBSS WITH SPEECH EVALUATION: The patient had a modified barium swallow study with speech evaluation today. Patient had no difficulty swallowing thick or thin barium. No aspiration occurred. Normal passage of barium through the upper esophagus. COLONOSCOPY FINDINGS: Two 5 - 9 mm polyps found in the descending colon, polypectomy performed. Mild patchy erythema was found in the distal sigmoid colon and rectum likely represents infectious etiology, biopsy performed. IMPRESSION AND PLAN: Diarrhea Malnutrition Colon polyps Anemia Dementia Colitis COPD PLAN: Ms. Dowling is a 78-year-old, female. GI has been following her for her chronic diarrhea and abdominal pain. The patient's stool studies have all been negative. Colonoscopy findings were polyps and grade 1 hemorrhoids. The patient has been started on Imodium 2 mg p.r.n. for diarrhea. She is currently on a regular diet with Ensure. Family has mentioned that the patient is still not able to swallow her food. Barium swallow and speech study have shown that the patient was having no problems swallowing and no aspiration problems. We have encouraged the family to continue trying to give the patient p.o. intake. She is currently receiving Pepcid 20 mg IV twice a day. The patient is also on antibiotics, Levaquin and Flagyl. We will continue to monitor the patient and if the patient is still having problems swallowing, we will plan to do an EGD. This plan was discussed with Dr. Schulte. Please call us for any further questions or concerns. Dictated by MONIK Pendleton for Layton Schulte MD cc: Layton Schulte MD I have seen and examined the patient myself and I agree with the above plan of care. Please call us with any further questions or concerns. MTDD
--- NOTE | 2019-10-02 14:18 | PROGRESS NOTE ---
DATE: 10/02/2019 INTERVAL HISTORY: No acute events overnight. SUBJECTIVE: Ms. Dowling is eating her lunch. She denies any chest pain, shortness of breath, cough. Her swallow evaluation by modified barium swallow was unremarkable. She continues to have diarrhea; however, she feels better. Multiple family members are currently at bedside. VITALS: Temperature: She is afebrile at 97.8, Pulse 90, respiratory rate 14, blood pressure 130/48. She is saturating 100% 2 liters nasal cannula. PHYSICAL EXAMINATION: General: Not in acute distress. Oral cavity: Moist. Lungs: Air entry bilaterally equal. No wheezing, rhonchi or crackles. Heart: S1 and S2 normal. No murmur or gallop. Abdomen: Soft, nontender. Extremities: No lower extremity edema. Neurologic: She is alert and she is answering questions properly. LABS: No CBC or BMP today. ASSESSMENT AND PLAN: 1. Bilateral lower lobe pneumonia. Continue antibiotics of levofloxacin; today is day 4 of antibiotics. Her chest x-ray suggests improvement. Her oxygen level is stable. I will complete a total of 5 to 7 days of antibiotics. 2. Chronic diarrhea, most likely infectious colitis. Her colonoscopy suggested inflammation affecting distal sigmoid colon and rectum, which could happen post infectious etiology. I will continue her on metronidazole and levofloxacin. She has been on loperamide for her chronic diarrhea. 3. Others. She does have history of chronic obstructive pulmonary disease and chronic hypoxic respiratory failure, hyperlipidemia, dementia, for which I will continue her home pravastatin, quetiapine, Roflumilast, inhaled bronchodilators and Symbicort. DISPOSITION: The patient and family decided to go home on hospice. The patient is medically ready for discharge. Family is awaiting bed and bedside commode delivery and making room inside her house. It looks like I was informed that should be ready tomorrow for discharge. cc: Asif Medeiros MD
--- NOTE | 2019-10-02 15:02 | PROVIDER PROGRESS NOTE ---
Progress Note Dr. Pierre Progress Note/Pulmonary and or critical care We appreciated progress of care, Complications, change in diagnosis, and instructions to patient under direct supervision of Dr. Pierre. Subjective: We note the level of consciousness, bed (chair) position, family presence (if any), level of lethargy, feeling of symptoms, and changes from baseline condition/symptom. The patient is lying in bed with no acute distress noted. She is on a NC at 2 L and tolerates well. She states she is fine. She does have lip-pursed breathing at times. Family at the bedside reports that she has been eating better today, but still had diarrhea after meal. Swallow test is negative. Objective: Vital Signs: We reviewed EMR current values for Pulse rate, Blood pressure, Pulse rate, respiratory rate and Pulse oximetry. Also noted other values and trends if present (e.g. I/O, CVP). Vital Signs 10/01/19 15:12 10/01/19 15:39 10/01/19 20:00 Temperature 98.1 F 97.8 F Pulse Rate 79 78 78 Respiratory Rate 22 14 Blood Pressure 106/49 123/44 O2 Sat by Pulse Oximetry 99 98 98 10/01/19 20:11 10/02/19 04:00 10/02/19 07:55 Temperature 97.9 F Pulse Rate 80 88 77 Respiratory Rate 14 15 Blood Pressure 110/44 O2 Sat by Pulse Oximetry 97 96 98 10/02/19 08:00 10/02/19 11:32 Temperature 97.8 F Pulse Rate 73 92 H Respiratory Rate 14 Blood Pressure 130/48 O2 Sat by Pulse Oximetry 100 Intake & Output 10/01/19 10/02/19 10/02/19 19:59 07:59 19:59 Intake Total 280 / 1380 1100 / 1380 Output Total 0 / 0 Balance 280 / 1380 1100 / 1380 Intake: Intake, IV Amount 1100 / 1100 Intake, Oral Amount 280 / 280 Output: Output, Urine Void Amount 0 / 0 Other: Percent of Meal Consumed 75% NG/Feeding Tube Residual Check No & Amount Number of Continent Voids Not 3 2 Measured Number of Bowel Movements 0 0 Physical Examination: General: Lying in bed with no acute distress noted. HEENT: Atraumatic. Normocephalic. No masses. Mucosa pink and moist. Chest: Even and unlabored. Lip-pursed breathing at times. Symmetrical excursion. Rhonchi bilaterally which clears up by coughing. Bilaterally coarse crackles. CVS: S1 S2. Abdomen: Non-tender. Soft. Bowel sounds present. Extremities: No pedal edema. No cyanosis. Mild clubbing noted. Neuro: A/O with confusion at times. Difficulty hearing. Speech fluent. Follow commands. Labs and Radiology: Reviewed available labs and radiology values available at time of EMR review. Dr. Pierre evaluated and additional note below. Evaluation time in minutes: 10 minutes. Assessment: Chronic hypoxemic respiratory failure. Bilateral lower lobe pneumonia, mainly at the bases with left side worse than the right side. Bronchiectasis with bronchitis and severe COPD. Chronic diarrhea with normocytic anemia. S/P colonoscopy on 10/01/19. Dementia. Code Status: DNR1 Plan: Continue current treatment and supportive care per admitting and other teams on the case. Antibiotics including Macrobid and Levaquin. Bronchodilators. Appropriate DVT and GI prophylaxis. Discharge with hospice planning per Admitting MD. Input was appreciated from Admitting MD and other teams on the case. Dr. Pierre did the evaluation, examination and management. DELIVERY MGR did the scribing/dictation for Dr. Pierre according to his directions.
[2019-10-02] MEDS: IMODIUM PO PRN (17:43)
[2019-10-02] MEDS: MUCOMYST 20% INH SCH (20:17)
[2019-10-02] MEDS: LEVAQUIN PO SCH (21:53)
[2019-10-02] MEDS: PRAVACHOL PO SCH (21:54)
[2019-10-02] MEDS: SEROQUEL PO SCH (21:54)
[2019-10-03] MEDS: FLAGYL PO SCH ×2 (03:26→13:42)
[2019-10-03] MEDS: DUONEB (A & A) INH SCH ×4 (03:36→15:36)
[2019-10-03] MEDS: MUCOMYST 20% INH SCH (08:36)
[2019-10-03] MEDS: INCRUSE ELLIPTA INH SCH (08:39)
[2019-10-03] MEDS: SYMBICORT 160/4.5 MICROGM INHALER INH SCH (08:39)
[2019-10-03] MEDS: VENTOLIN HFA INH SCH (08:39)
[2019-10-03] MEDS: NUEDEXTA 20-10 MG CAPSULE PO SCH (09:52)
[2019-10-03] MEDS: ASPIRIN EC PO SCH (09:52)
[2019-10-03] MEDS: FOLIC ACID PO SCH (09:52)
[2019-10-03] MEDS: PEPCID PO SCH (09:52)
[2019-10-03] MEDS: DALIRESP PO SCH (09:53)
[2019-10-03 12:38] VITALS: BP 119/41
--- NOTE | 2019-10-03 15:22 | GASTROENTEROLOGY PROGRESS NOTE ---
DATE: 10/03/2019 SUBJECTIVE: Ms. Dowling is a 78-year-old female resting in bed. Family is at the bedside. The patient has dementia with loss of short-term memory. Family has been complaining that the patient is not able to tolerate a diet well. Patient denied any nausea, vomiting, or abdominal pain. Her diarrhea is under control, she had 1 bowel movement today. OBJECTIVE: Vital Signs: Temperature 98.6 degrees, pulse is 91, respirations 16, blood pressure 119/41, oxygen saturation 97% on 2 L nasal cannula. The patient's weight is 107 pounds. BMI is 19.1 kg/m2. General: She is alert, oriented x2, and in no acute distress. HEENT: Pale conjunctivae. No icterus. PERRL. Neck: Supple. Lungs: Clear to auscultation. Cardiovascular: Regular rate and rhythm. Abdomen: Soft, nontender, nondistended. Active bowel sounds heard in all 4 quadrants. Extremities: No clubbing, no cyanosis, no edema. Pedal pulses 2+ present bilaterally. Neurologic: She is alert, oriented x2 with loss of short-term memory. LABORATORY DATA: The patient does not have any recent hematology or chemistry. Her labs are from 10/01/2019. WBC 5.23, RBC 3.90, hemoglobin 10.2, hematocrit is 33.9, platelet count is 336,000. Sodium 140, potassium 3.2, chloride 102, carbon dioxide 30, anion gap 8, BUN 6, creatinine 0.6 glucose 83, calcium is 9.1. IMAGING: The patient's chest x-ray yesterday showed improved atelectasis with pneumonia in the left lower lobe. IMPRESSION AND PLAN: 1. Colitis. 2. Chronic diarrhea. 3. Protein calorie malnutrition. 4. Pneumonia. 5. Colon polyps. 6. Chronic obstructive pulmonary disease. 7. Hemorrhoids. 8. Anemia. 9. Dementia. PLAN: Ms. Dowling is a 78-year-old female. GI is following her for chronic diarrhea and abdominal pain. The patient's diarrhea has been improved. She is on Imodium 2 mg p.r.n. The patient was on a regular diet, family was complaining that she is not not able to tolerate her diet. She is now on a pureed diet. The patient's barium swallow and speech study have shown that no problems swallowing as well as no aspiration problem. We have encouraged the family to continue trying to give the patient p.o. intake. She has discharge orders to go home today with hospice. We will continue to monitor the patient and follow the plan of care per PCP. This plan was discussed with Dr. Hurtado. Please call us for any further questions or concerns. Dictated by MONIK Pendleton for Swapnil Hurtado MD Physician Attestation I have seen and examined the patient. I have discussed and reviewed the note by Iris RUGGIERO and agree with findings and plan as documented. Patient is refusing to eat. MBS was normal. Random biopsies from colonoscopy were unrevealing microscopic colitis or IBD. Family has decided to take patient home with hospice. In light of this decision, no further GI workup indicated. Recommend scheduled imodium for diarrhea. Advance diet as tolerated for comfort. Will sign off. MTDD
[2019-10-04] MEDS ORDERED: VITAMIN D PO SCH (09:00)
--- NOTE | 2019-10-04 11:45 | DISCHARGE SUMMARY ---
ADMISSION DATE: 09/28/2019 DISCHARGE DATE: 10/03/2019 DISCHARGE DISPOSITION: Home with home hospice. DISCHARGE CONDITION: Hemodynamically stable. Breathing well on nasal cannula. She was able to eat her dinner. She has intermittent episodes of confusion, likely because of delirium. Her family is at bedside. The plan is to discharge the patient home with hospice. DISCHARGE DIAGNOSES: 1. Bilateral lower lobe pneumonia. 2. Chronic diarrhea, likely due to infectious colitis. 3. Dementia 4. Hearing impairment. OTHER DIAGNOSES: 1. History of chronic obstructive pulmonary disease and chronic hypoxic respiratory failure on home oxygen. 2. History of dementia. 3. Essential hypertension. 4. Recent urinary tract infection. 5. Normocytic anemia. 6. Code status Do Not Resuscitate level 1. The patient is going home on hospice. DISCHARGE MEDICATIONS: 1. Dextromethorphan quinidine one capsule every 12 hours. 2. Albuterol sulfate inhaler two puffs inhaled b.i.d. 3. Aspirin 81 mg daily. 4. Vitamin D3 3000 mg daily. 5. Roflumilast 500 mcg daily. 6. Incruse Ellipta one puff inhaled daily. 7. Vitamin D3 one tablet daily. 8. Pravastatin 80 mg at nighttime. 9. Quetiapine 25 mg at nighttime. 10. Symbicort 10.2 grams inhaled b.i.d. 11. Metronidazole 500 mg every 8 hours, nine tablets. 12. Famotidine 20 mg every 12 hours. 13. DuoNeb 3 mL inhaled every four hours. 14. Folic acid 1 mg daily. 15. Loperamide 2 mg every six hours for diarrhea. 16. Levofloxacin 750 mg daily, three tablets. 17. Macrobid 100 mg b.i.d. 18. Cholestyramine 4 grams b.i.d. as needed for diarrhea. VITALS AT THE TIME OF DISCHARGE: Temperature 98 degrees, pulse 72, respiratory rate 19, blood pressure 129/50, saturating 97% on 2 L nasal cannula. PHYSICAL EXAMINATION: General: She is not in acute distress. Mouth: Oral cavity is moist. Lungs: Air entry bilaterally equal. No wheeze, rhonchi, crackles. She is breathing well on nasal cannula. Cardiovascular: S1, S2 normal. No murmur, rub, or gallop. Abdomen: Soft, nontender. Extremities: No lower extremity edema. SIGNIFICANT LABS DURING HOSPITAL: Discharge WBC 5.2, hemoglobin 10.2, platelet 336,000. Potassium 3.2 which was being repleted. Sodium 140, BUN 6, creatinine 0.6. Microbiology: Blood culture, stool culture, sputum culture, Clostridium difficile antigen and toxins were unremarkable. Stool for WBCs has detected moderate amount of white blood cells. Stool was negative for ova and parasite. SIGNIFICANT IMAGING DURING HOSPITAL ADMISSION: 1. Chest x-ray on presentation had left lower lobe pneumonia, which was improving. Chest CT on 09/29/2019 had bronchiectasis with bronchitis; patchy infiltrate indicating pneumonia involving both lower lobes, mainly at the bases which was worse on the left side. 2. Abdominal x-ray on 09/29/2019 did not have any evidence of constipation. 3. Chest x-ray on 10/02/2019 had improved atelectasis versus pneumonia in the left lower lobe. PROCEDURES: 1. Colon biopsy performed on 09/30/2019 had colonic mucosa with no significant histopathological abnormalities. She had polyps, which had tubular adenoma. 2. Electrocardiogram on presentation had normal sinus rhythm, cannot rule out anterior infarct age undetermined, prolonged QT. 3. Endoscopy on 09/30/2019 which had detected normal mucosa of terminal ileum, two polyps in the descending colon for which polypectomy was performed, normal colonic mucosa in the ascending, transverse, descending colon and mild patchy erythema in the distal sigmoid colon and rectum for which biopsy was performed. It was likely infectious etiology. 4. Speech modified barium swallow did not have any definitive abnormalities. HOSPITAL COURSE SUMMARY: Ms. Dowling is a 78 years old lady who was recently discharged from the hospital on 09/04/2019 when she was admitted for syncope, abdominal discomfort, pneumonia, and she was diagnosed with clinical volume depletion, mild chronic obstructive pulmonary disease exacerbation, severe enteritis and she was discharged on prednisone and antibiotics. However, the patient did not do well and had to come to the emergency room on 09/22/2019 for complaints of diarrhea, which did not get better. At that time she received chest x-ray and was discharged home after intravenous fluids. Later on the chest x-ray was read that the patient had pneumonia, so she was called in to get admitted for IV antibiotics. Ms. Dowling was admitted for intravenous antibiotics and chest x-rays were repeated and her pneumonia seemed to improved after intravenous antibiotics. Recent chest x-ray on 10/02/2019 had suggested significant improvement of pneumonia. She will be discharged on oral antibiotics to complete the course. For her chronic diarrhea, GI team was consulted and patient underwent endoscopy on 09/30/2019, which had a couple of polyps removed, which were adenoma. It was thought that she probably had recovery of her enteritis, which was shown as a mild erythema in the colon and she was started on Imodium as well as cholestyramine for symptomatic treatment of diarrhea. Considering her COPD, chronic hypoxic respiratory failure, chronic diarrhea, the patient had expressed her wishes that she wanted to go home on hospice and receive comfort measures only and discussion was held with the family who agreed with the plan, so the hospice team was consulted. At the time of this dictation, plan is to discharge the patient home on hospice to receive comfort care. TIME SPENT: More than 30 minutes of time was spent in discharging this patient. DISPOSITION: She will be going home on oxygen and hospice care. All of the patient's family members at bedside questions have been answered. cc: Asif Medeiros MD
== END 2019-10-03 18:11 | disposition hospice, home (50) | DRG 191 ==
LOC: ED 18:59 → OBSVTOIN 09-28 00:39 → SUATTDRO 09-28 00:39 → 3N 09-28 00:39 → INTOOBSV 09-28 00:39
PROVIDERS: ATTEND Internal Medicine